=== PATIENT | female | born 1950 | race Caucasian/White ===

== ENCOUNTER → 2016-09-28 | Outpatient (CLI) | payer BC ==
[~2016-09-28] MED LIST: ALBUAER19 INH; AMITIZA PO; ASPI81TA21 PO; ATV5 PO; CHOL100027 PO; CYAN10004 PO; DICY20TA35 PO; DPH/ PO; GABA300C19 PO; KETOPROFEN TOP; LAMO200T38 PO; LOSA50TA6 PO; LRT5 PO; METF1000 PO; MRLP17 PO; MULTTAB58 PO; NAPR1TAB9 PO; PANT40TA PO; RAME8TAB PO; SIMV20TA2 PO; SNT/10 PO; TRAM-10 PO; TRAZ100T29 PO; VAGIFEM PO
== END | disposition home or self-care (01) ==
LOC: C.LABBC 13:47
PROVIDERS: ATTEND Psychiatry & Neurology Psychiatry
DX: F31.4 Bipolar disorder, current episode depressed, severe, without psychotic features (principal)

== ENCOUNTER → 2016-11-09 | Outpatient (CLI) | payer BC | END | disposition home or self-care (01) | LOC: C.PAPS 15:52 | PROVIDERS: ATTEND Obstetrics & Gynecology | DX: Z01.419 Encounter for gynecological examination (general) (routine) without abnormal findings (principal); N95.2 Postmenopausal atrophic vaginitis ==

== ENCOUNTER → 2016-12-10 | Outpatient (CLI) | payer BC ==
[2016-12-10 11:21] LABS: BLOOD UREA NITROGEN 12 mg/dl (7-18); BUN/CREATININE RATIO 14.4 (10-20); CALCIUM 8.8 mg/dl (8.5-10.1); CARBON DIOXIDE 32 mmol/L (21-32); CHLORIDE 101 mmol/L (98-107); CREATININE 0.86 mg/dl (0.60-1.20); GLUCOSE 131 mg/dl (70-99); MAGNESIUM 1.5 mg/dl (1.8-2.4); POTASSIUM 3.9 mmol/L (3.5-5.1); SODIUM 139 mmol/L (136-145)
[2016-12-10 11:30] LABS: ESTIMATED AVERAGE GLUCOSE 171 mg/dl; HA1C FLAG Normal (Normal)
== END | disposition home or self-care (01) ==
LOC: C.LABBC 08:42
PROVIDERS: ATTEND Internal Medicine
DX: E55.9 Vitamin D deficiency, unspecified (principal); E11.9 Type 2 diabetes mellitus without complications; E83.42 Hypomagnesemia

== ENCOUNTER → 2017-03-24 | Outpatient (CLI) | payer BC ==
[2017-03-24 13:41] LABS: ESTIMATED AVERAGE GLUCOSE 143 mg/dl; HA1C FLAG Normal (Normal)
[2017-03-24 14:07] LABS: ALT/SGPT 19 U/L (12-78); AST/SGOT 10 U/L (15-37); BLOOD UREA NITROGEN 16 mg/dl (7-18); BUN/CREATININE RATIO 14.4 (10-20); CALCIUM 9.3 mg/dl (8.5-10.1); CARBON DIOXIDE 26 mmol/L (21-32); CHLORIDE 103 mmol/L (98-107); CHOLESTEROL 151 mg/dl (0-200); GLUCOSE 131 mg/dl (70-99); SODIUM 139 mmol/L (136-145); TRIGLYCERIDES 151 mg/dl (0-150); VERY LOW DENSITY LIPOPROT CALC 30 mg/dl
[2017-03-24 14:11] LABS: CHOLESTEROL/HDL RATIO 3.2; HDL CHOLESTEROL 47 mg/dl; LDL CHOLESTEROL CALCULATED 74 mg/dl
== END | disposition home or self-care (01) ==
LOC: C.LABBC 09:41
PROVIDERS: ATTEND Internal Medicine
DX: E78.5 Hyperlipidemia, unspecified (principal); I10 Essential (primary) hypertension; E11.9 Type 2 diabetes mellitus without complications

== ENCOUNTER → 2017-03-31 | Outpatient (CLI) | payer BC | END | disposition home or self-care (01) | LOC: C.LAB1850 15:13 | PROVIDERS: ATTEND Internal Medicine | DX: M25.50 Pain in unspecified joint (principal) ==

== ENCOUNTER → 2017-04-22 | Outpatient (CLI) | payer BC ==
[2017-04-22 19:02] LABS: LYME DISEASE AB IGG NEG (NEG); LYME DISEASE AB IGM NEG (NEG)
[2017-04-22 20:15] LABS: RAPID PLASMA REAGIN NONREACTIVE (NONREACT)
--- NOTE | 2017-04-27 08:57 | CODING QUERY MEDICAL NECESSITY ---
SUPPORTING DIAGNOSIS NEEDED A supporting diagnosis is required for the test/procedure performed on this patient in order for us to be reimbursed by the patient's insurance. Please provide a supporting diagnosis for the following test/procedure listed below next to the test name along with your signature. *If there is no additional diagnosis for this patient that would support the following test/procedure please document that below next to the test/procedure. Test(s)/Procedure(s) that require a supporting diagnosis: * VITAMIN B12 DIAGNOSIS: Provider Signature: Date: Thank you Sofya [place] [employer] Once completed, please kindly fax back to [phone] For questions please call [phone]
== END | disposition home or self-care (01) ==
LOC: C.LABBC 13:39
PROVIDERS: ATTEND Psychiatry & Neurology Neurology
DX: M79.603 Pain in arm, unspecified (principal); R20.8 Other disturbances of skin sensation

== ENCOUNTER → 2017-04-29 | Outpatient (CLI) | payer BC ==
--- NOTE | 2017-04-29 08:07 | DIAGNOSTIC IMAGING REPORT ---
Brain MRI WITHOUT CONTRAST HISTORY: M79.603 right Arm pain r/o thalamic stroke TECHNIQUE: Multiplanar multisequence MRI of the brain was performed without the use of contrast. COMPARISON STUDY: None. FINDINGS: There are no areas of restricted diffusion to suggest acute infarction. Incidental note is made of a partially empty sella. Otherwise, the midline structures are intact. The paranasal sinuses are clear. The mastoid air cells are clear. The ventricles and sulci are within normal limits for age. There is no mass, hematoma, midline shift. The major vascular flow-voids at the skull base are well maintained. There are few scattered punctate T2 hyperintense foci within the periventricular white matter. These are nonspecific but favor minimal microvascular ischemic change. IMPRESSION: No acute intracranial abnormality. Electronically signed by: Sung Rojas M.D. 04/29/2017 8:06 AM Dictated Date/Time: 04/29/2017 8:01 AM
--- NOTE | 2017-04-29 08:30 | DIAGNOSTIC IMAGING REPORT ---
CERVICAL WITHOUT CONTRAST HISTORY: 66 years-old Female M79.603 acute right arm pain without trauma COMPARISON: Brain MR of same day. TECHNIQUE: Multiplanar multisequence noncontrast MR images of the cervical spine were obtained. FINDINGS: The imaged posterior fossa structures are unremarkable. Signal within the cord is within normal limits on the T2 images. Increased signal within the cord extending from C3-T1 on the sagittal STIR images is thought to be artifactual. Multilevel intervertebral disc space narrowing, annular disc bulging and facet arthropathy is noted as discussed below. There is reversal of the normal cervical lordosis with approximately 10 degrees kyphotic curvature centered at C5-C6. The imaged soft tissues of the neck appear to be within normal limits. No fracture or focal bone marrow edema. No marrow replacing process. C2-C3: Minimal uncovertebral spurring without significant central canal or foraminal narrowing. C3-C4: 2 mm anterolisthesis of C3 on C4 is likely on a degenerative basis. There is mild to moderate intervertebral disc space narrowing with uncovertebral spurring and mild facet arthropathy causing effacement the ventral thecal sac. Neuroforamen are patent. C4-C5: Mild to moderate intervertebral disc space narrowing and uncovertebral spurring is noted with mild facet arthropathy. Broad-based posterior disc ossify complex formation causes mild central canal narrowing. The neuroforamen are patent. C5-C6: Moderate to severe intervertebral disc space narrowing is present with associated broad-based posterior disc osteophyte complex favoring the right paracentral region and right lateral recess causing mild central canal, moderate right lateral recess and severe right neuroforaminal narrowing. Additionally there is moderate facet arthropathy. Left foramen is patent. C6-C7: Severe intervertebral disc space narrowing with mild to moderate facet arthrosis. Broad-based posterior disc osteophyte complex formation causes moderate central canal, moderate right and moderate to severe left foraminal stenosis. C7-T1: Moderate intervertebral disc space narrowing with moderate facet arthrosis and broad-based posterior disc osteophyte complex causes mild central canal narrowing. The foramina are generally patent. Imaged upper thoracic levels appear normal on the sagittal images alone. IMPRESSION: 1. 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 This may account for the patient's reported right upper extremity symptomatology. 2. At C6-C7 discogenic degeneration causes moderate central canal, moderate right and moderate to severe left foraminal narrowing. 3. At C7-T1 moderate facet arthrosis with broad-based posterior disc osteophyte complex formation causes mild central canal stenosis. 4. 10 degrees kyphotic curvature centered at C5-C6. The above report was generated using voice recognition software. It may contain grammatical, syntax or spelling errors. Electronically signed by: Mitch Serrano M.D. 04/29/2017 8:29 AM Dictated Date/Time: 04/29/2017 8:11 AM
== END | disposition home or self-care (01) ==
LOC: C.MRIBC 07:10
PROVIDERS: ATTEND Psychiatry & Neurology Neurology
DX: M79.601 Pain in right arm (principal); M50.322 Other cervical disc degeneration at C5-C6 level; M50.323 Other cervical disc degeneration at C6-C7 level; M50.33 Other cervical disc degeneration, cervicothoracic region

== ENCOUNTER → 2017-09-09 | Outpatient (CLI) | payer BC ==
[~2017-09-09] MED LIST changes: -AMITIZA PO; -DICY20TA35 PO; -DPH/ PO; -GABA300C19 PO; +GABA400C PO; -KETOPROFEN TOP; +LAMO200T35 PO; -LAMO200T38 PO; -LRT5 PO; +METH500T37 PO; -MRLP17 PO; -NAPR1TAB9 PO; -PANT40TA PO; -VAGIFEM PO
[2017-09-09 11:13] LABS: BLOOD UREA NITROGEN 21 mg/dl (7-18); BUN/CREATININE RATIO 20.3 (10-20); CALCIUM 9.6 mg/dl (8.5-10.1); CARBON DIOXIDE 26 mmol/L (21-32); CHLORIDE 99 mmol/L (98-107); CREATININE 1.02 mg/dl (0.60-1.20); GLUCOSE 212 mg/dl (70-99); POTASSIUM 4.1 mmol/L (3.5-5.1); SODIUM 133 mmol/L (136-145)
[2017-09-09 11:23] LABS: ESTIMATED AVERAGE GLUCOSE 189 mg/dl; HA1C FLAG Normal (Normal)
== END | disposition home or self-care (01) ==
LOC: C.LABBC 09:02
PROVIDERS: ATTEND Internal Medicine
DX: E11.9 Type 2 diabetes mellitus without complications (principal); E53.8 Deficiency of other specified B group vitamins; E55.9 Vitamin D deficiency, unspecified

== ENCOUNTER → 2017-09-28 | Outpatient (CLI) | payer BC ==
--- NOTE | 2017-09-29 15:30 | MAMMOGRAPHY REPORT ---
BILATERAL DIGITAL SCREENING MAMMOGRAM TOMOSYNTHESIS WITH CAD: 09/28/2017 CLINICAL HISTORY: Routine screening. Patient has no complaints. TECHNIQUE: Breast tomosynthesis in addition to standard 2D mammography was performed. Current study was also evaluated with a Computer Aided Detection (CAD) system. COMPARISON: Comparison is made to exams dated: 05/18/2016 mammogram, 04/09/2015 mammogram, 01/30/2014 m ammogram, 01/17/2013 mammogram, 12/21/2011 mammogram, and 12/02/2010 mammogram - [facility] nter. BREAST COMPOSITION: There are scattered areas of fibroglandular density in both breasts. FINDINGS: A focal asymmetry in the upper outer left breast posteriorly is unchanged in size and appea saul dating back to at least 11/23/2007, therefore likely benign. There are numerous scattered jodi gn coarse calcifications in the breasts. Moderate vascular calcification. No new suspicious mass, a rchitectural distortion or cluster of microcalcifications is seen. IMPRESSION: ACR BI-RADS CATEGORY 1: NEGATIVE There is no mammographic evidence of malignancy. A 1 year screening mammogram is recommended. The pa tient will receive written notification of the results. Approximately 10% of breast cancers are not detected with mammography. A negative mammographic report should not delay biopsy if a clinically suggestive mass is present. Darlene Herndon M.D. ay/:09/28/2017 16:32:49 [employer]ile Processing Technologist: Alicia Alejandra RT(R)(M), [facility] letter sent: Normal 1/2 BI-RADS Code: ACR BI-RADS Category 1: Negative
== END | disposition home or self-care (01) ==
LOC: C.MAMM 11:28
PROVIDERS: ATTEND Obstetrics & Gynecology
DX: Z12.31 Encounter for screening mammogram for malignant neoplasm of breast (principal)

== ENCOUNTER → 2017-11-04 | Outpatient (CLI) | payer BC ==
[~2017-11-04] MED LIST changes: +LOSA1TAB PO; -LOSA50TA6 PO
--- NOTE | 2017-11-04 15:01 | DIAGNOSTIC IMAGING REPORT ---
R ELBOW MIN 3 VIEWS ROUTINE CLINICAL HISTORY: RIGHT ELBOW PAIN pain COMPARISON: None. DISCUSSION: The bones and joint spaces appear intact. There is no evidence of fracture, dislocation or bony disease. There is no evidence for soft tissue swelling. IMPRESSION: Negative study. The above report was generated using voice recognition software. It may contain grammatical, syntax or spelling errors. Electronically signed by: Elian Fernando M.D. 11/04/2017 3:00 PM Dictated Date/Time: 11/04/2017 2:59 PM
== END | disposition home or self-care (01) ==
LOC: C.RAD1850 14:49
PROVIDERS: ATTEND Physical Medicine & Rehabilitation Sports Medicine
DX: M25.511 Pain in right shoulder (principal); M25.521 Pain in right elbow

== ENCOUNTER → 2017-11-17 | Outpatient (CLI) | payer BC | END | disposition home or self-care (01) | LOC: C.PAPS 13:47 | PROVIDERS: ATTEND Obstetrics & Gynecology | DX: N95.2 Postmenopausal atrophic vaginitis (principal); L90.0 Lichen sclerosus et atrophicus ==

== ENCOUNTER → 2017-11-26 | Outpatient (CLI) | payer BC ==
--- NOTE | 2017-11-26 14:15 | DIAGNOSTIC IMAGING REPORT ---
CERVICAL SPINE 2 OR 3 VIEWS HISTORY: 67 years-old Female RIGHT ARM AND NECK PAIN acute neck and right arm pain COMPARISON: Cervical spine MRI 04/29/2017 TECHNIQUE: 2 views of the cervical spine FINDINGS: Sternotomy wires are partially imaged as well as surgical clips along the left mediastinum. Imaged lung mcdaniel appear clear. No prevertebral soft tissue swelling. The seventh vertebral segment is partially secured by patient's shoulder on the lateral view. Severe intervertebral disc space narrowing is present at C5-C6, and C6-C7 with at least moderate intervertebral disc space narrowing at C7-T1. Multilevel endplate spurring with at least moderate multilevel facet arthropathy. There is straightening of the normal cervical lordosis. No acute fracture or subluxation identified. IMPRESSION: 1. No acute fracture or subluxation identified. 2. Multilevel intervertebral disc space narrowing, endplate spurring and facet arthropathy as above. The above report was generated using voice recognition software. It may contain grammatical, syntax or spelling errors. Electronically signed by: Mitch Serrano M.D. 11/26/2017 2:13 PM Dictated Date/Time: 11/26/2017 2:10 PM
== END | disposition home or self-care (01) ==
LOC: C.RDSM 08:00
PROVIDERS: ATTEND Orthopaedic Surgery
DX: M79.601 Pain in right arm (principal); M99.71 Connective tissue and disc stenosis of intervertebral foramina of cervical region; M46.02 Spinal enthesopathy, cervical region

== ENCOUNTER → 2018-01-07 | Outpatient (CLI) | payer BC ==
[~2018-01-07] MED LIST changes: +ASPI-319 PO; -ASPI81TA21 PO; -GABA400C PO; +NRN800 PO
[2018-01-07 10:43] LABS: BLOOD UREA NITROGEN 11 mg/dl (7-18); CALCIUM 9.6 mg/dl (8.5-10.1); CARBON DIOXIDE 29 mmol/L (21-32); CREATININE 0.91 mg/dl (0.60-1.20); GLUCOSE 105 mg/dl (70-99); POTASSIUM 3.8 mmol/L (3.5-5.1); SODIUM 139 mmol/L (136-145)
[2018-01-07 10:46] LABS: ALT/SGPT 18 U/L (12-78); AST/SGOT 10 U/L (15-37); CHOLESTEROL 134 mg/dl (0-200); LDL CHOLESTEROL CALCULATED 36 mg/dl
[2018-01-07 10:53] LABS: CREATININE RANDOM URINE 46.9 mg/dl
[2018-01-07 11:14] LABS: HEMOGLOBIN A1C 6.2 % (4.5-5.6)
== END | disposition home or self-care (01) ==
LOC: C.LABBC 08:06
PROVIDERS: ATTEND Internal Medicine
DX: E11.9 Type 2 diabetes mellitus without complications (principal); I10 Essential (primary) hypertension; E78.5 Hyperlipidemia, unspecified

== ENCOUNTER → 2018-04-14 | Outpatient (CLI) | payer BC ==
[~2018-04-14] MED LIST changes: +METH-445 PO; -METH500T37 PO
--- NOTE | 2018-04-14 16:55 | DIAGNOSTIC IMAGING REPORT ---
CERVICAL SPINE MRI HISTORY: Right-sided upper extremity pain. TECHNIQUE: Multiplanar multisequence MRI of the cervical spine was performed without the use of contrast. COMPARISON STUDY: Cervical spine 11/26/2017. Cervical spine MRI 04/29/2017. FINDINGS: Slight reversal the normal lordotic curvature. No fracture or subluxation. Prevertebral soft tissues and the C1-C2 interval are intact. The visualized posterior fossa is unremarkable. The cervical spinal cord demonstrates a normal signal intensity. Mild facet degenerative changes throughout the cervical spine. This remains unchanged. Severe disc space narrowing with small endplate osteophytes at C5-C6 and C6-7, unchanged. Moderate disc space narrowing at C7-T1 which is also unchanged. Mild disc space narrowing at C3-C4 and C4-C5. C2-C3: No significant central canal or neural foraminal narrowing. C3-C4: Small broad-based posterior disc bulge resulting in partial effacement of the anterior thecal sac without cord deformity. Mild left-sided neural foraminal narrowing. C4-C5: Broad-based posterior disc bulge which abuts and slightly deforms the anterior cord. There is also mild left-sided neural foraminal narrowing due to the uncovertebral hypertrophy. C5-C6: Broad-based posterior disc bulge which abuts and slightly deforms the anterior cord. There is severe right-sided neural foraminal narrowing primarily due to the uncovertebral hypertrophy. C6-C7: Broad-based posterior disc bulge with a focal central disc protrusion. This abuts and slightly deforms anterior cord. There is severe bilateral neural foraminal narrowing due to the disc bulge and uncovertebral hypertrophy. C7-T1: Broad-based posterior disc bulge resulting in near-complete effacement of the anterior thecal sac without cord deformity. Moderate right and mild left neural foraminal narrowing. IMPRESSION: 1. Overall, no significant change compared to prior study. 2. Multilevel cervical spondylosis as described above most pronounced at the C6-C7 level. 3. No fracture or subluxation. 4. Mild reversal the normal lordotic curvature, unchanged Electronically signed by: Sung Rojas M.D. 04/14/2018 4:53 PM Dictated Date/Time: 04/14/2018 4:44 PM
== END | disposition home or self-care (01) ==
LOC: C.MRIBC 15:32
PROVIDERS: ATTEND Nurse Practitioner
DX: M47.812 Spondylosis without myelopathy or radiculopathy, cervical region (principal); M54.12 Radiculopathy, cervical region

== ENCOUNTER 2023-03-05 15:45 | Inpatient (IN) ==
[2023-03-05 17:00] LABS: Basophils # (auto) 0.05 K/uL (0-0.2); Basophils % (auto) 0.7 %; Eosinophils # (auto) 0.12 K/uL (0-0.50); Eosinophils % (auto) 1.7 %; Hematocrit (blood only) 34.1 % (37.0-47.0); Hemoglobin 11.4 g/dl (12.0-16.0); Immature Granulocytes # (auto) 0.03 K/uL (0.01-0.20); Immature Granulocytes % (auto) 0.4 %; Lymphocytes # (auto) 1.51 K/uL (1.2-3.4); Lymphocytes % (auto) 21.9 %; Mean Corpuscular Hemoglobin 27.5 pg (25.0-34.0); Mean Corpuscular Hgb Conc 33.4 g/dL (32.0-36.0); Mean Corpuscular Volume 82.4 fL (80.0-100.0); Mean Platelet Volume 9.4 fL (9.4-12.4); Monocytes # (auto) 0.49 K/uL (0.11-0.59); Monocytes % (auto) 7.1 %; Neutrophils # (auto) 4.69 K/uL (1.40-6.50); Neutrophils % (auto) 68.2 %; Platelet Count 382 K/uL (130-400); RDW Standard Deviation 38.9 fL (36.4-46.3); Red Blood Count 4.14 M/uL (4.20-5.40); White Blood Count 6.89 K/ul (4.8-10.8)
[2023-03-05 17:14] LABS: Albumin Globulin Ratio 1.5 (0.9-2); Albumin Level 4.4 gm/dl (3.4-5.0); BUN Creatinine Ratio 19.3 (10-20); Bilirubin,Total 0.5 mg/dl (0.2-1.0); Calcium 9.7 mg/dl (8.6-10.3); Creatinine Clr Calc Pharmacy 33.5 ml/min; Est GFR (African American) 41.3 ml/min; Est GFR (Non-African American) 35.6 ml/min; Potassium 3.8 mmol/L (3.5-5.1); Total Protein 7.4 gm/dl (6.0-8.3)
[2023-03-05 17:19] LABS: Troponin I High Sensitivity 7.2 pg/ml (0-14)
[2023-03-05 17:24] LABS: Partial Thromboplastin Time 26.8 Seconds (21.0-31.0); Prothrombin Time 10.5 Seconds (9.0-12.0)
--- NOTE | 2023-03-05 17:26 | XRay Report ---
XR chest 1V not portable CLINICAL HISTORY: Chest pain, nonspecific COMPARISON STUDY: Chest radiograph December 25, 2018. FINDINGS: There are median sternotomy wires and mediastinal surgical clips. Cardiomediastinal silhoue tte is stable. There is no evidence for pulmonary edema. No consolidation is present. There is no pne umothorax or pleural effusion. IMPRESSION: No acute cardiopulmonary findings. ACT 112: Negative or not required by law. Electronically signed by: Delfino Ford M.D. 03/05/2023 5:25 PM
--- NOTE | 2023-03-05 18:02 | Emergency Department Note ---
Impression & Plan Diverticulitis, Acute hyponatremia, Generalized weakness ED Provider Note HISTORY OF PRESENT ILLNESS: Patient is a 72-year-old female presenting with left lower quadrant abdominal p ain and generalized weakness. Patient reports for the last week she has been sick with general malaise and generalized weakness. Reports that she had multiple episodes of vomiting earlier in the week and went to her primary care provider's office and was diagnosed with acute cholecystitis. She was started on Augmentin 2 days ago. Reports that over the last 2 days she has had progressively worsening of her left lower quadrant abdominal pain. Reports has had multiple episodes of diarrhea. Denies any chest pain or shortness of breath. Denies any fevers. Denies any dysuria or hematuria. Reports she feels very rundown and has not been able to do her normal activities secondary to her profound fatigue. ROS: as above PHYSICAL EXAM: Constitutional: Patient appears in no acute distress. HENT: Head: Normocephalic and atraumatic. Eyes: EOMI, PERRL Mouth/Throat: Mucous membranes moist. Neck: Trachea midline. Neck supple. Cardiovascular: RRR, No murmurs, rubs or gallops. Intact distal pulses. Pulmonary/Chest: No respiratory distress. Breath sounds clear and equal bilaterally. No wheezes or rales. Abdominal: BS +. Abdomen soft. LLQ TTP with guarding Musculoskeletal: No edema, tenderness or deformity noted. Skin: Warm and dry. No rash, erythema, pallor or cyanosis Psychiatric: Appropriate mood and affect for situation. Neurological: Alert and keenly responsive. CN II-XII grossly intact, moving all extremities equally and fully. MDM: - Vitals signs showed hypertension. - History obtained via patient. Patient presents with left lower quadrant abdominal pain and generalized weakness. Patient was diagnosed with acute cholecystitis 2 days ago and started on Augmentin. Reports for the last week she been having progressively worsening generalized weakness. Reports she has been unable to do her daily activities secondary to feeling so rundown. Denies any fevers. Reports vomiting and diarrhea. - Chronic conditions affecting care: HTN; HLD; DM-2; CAD (s/p PCI) - Differential diagnoses include, but are not limited to: diverticulitis; diverticular abscess; ureteral calculi; UTI - Order placed for continuous cardiac monitoring. At this time, monitor showed rate of 85 bpm with normal sinus rhythm, per my interpretation. - External medical records reviewed. PCP visit note from 03/03/[address] scan was shown to have acute diverticulitis. She was started on Augmentin. - EKG interpreted by myself showed normal sinus rhythm. Rate 91 bpm. QTc 405. No acute ischemic changes. - Laboratory workup interpreted by myself showed normal WBC; hyponatremia (Na 128); CKD (Cr 1.45); normal liver function; normal troponin; negative procalcitonin - CT abdomen/pelvis wiht IV contrast obtained to rule out abscess. CT showed persistent mild sigmoid diverticulitis. - Considered CT head wo contrast for further rule out of patient's weakness. However, she has no focal neurological deficits on examination. Her generalized weakness may be multifactorial given her acute infectious etiology as well as her hyponatremia. - CXR negative for pneumonia or pneumothorax, per my interpretation - Patient given 1L NS, 50 mcg IV fentanyl and 4 mg IV zofran in ER. On reassessment, pain is improved. - Discussed results with patient. She expresses concern about potential discharge home, given her generalized weakness and the fact that she lives alone. Offered admission to the hospital to which she was agreeable - Discussion was had with secondary social studies teacher about patient's case and need for admission - Hospitalist, Dr. Day, consulted for admission - [facility] and [facility] ASSESSMENT AND PLAN: Diagnosis: generalized weakness; diverticulitis; hyponatremia Plan: admit Past Med/Surg History Medical History (Updated 03/05/23 @ 21:17 by Ángela Mcpherson MD) Abdominal pain Abdominal pain, LLQ Anxiety Asthma RARE INH USE Bipolar disorder CAD S/P percutaneous coronary angioplasty Cervical radiculopathy Depression Diabetes Fall History of Holter monitoring YRS AGO HTN (hypertension) Hyperlipemia IBS (irritable bowel syndrome) Insomnia Lichen sclerosus et atrophicus Mixed conductive and sensorineural hearing loss of right ear with restricted hearing of left ear Pain of right orbit Photophobia of right eye Premature ventricular contractions FOLLOWS ZYSMANSKY Reflex sympathetic dystrophy Renal insufficiency Renal stones CYSTO AND SOME PASSED ON OWN Sensorineural hearing loss (SNHL) of right ear with restricted hearing of left ear Tinnitus of right ear Traumatic black eye of right side UTI (urinary tract infection) Vitamin B12 deficiency Vitamin D deficiency Surgical History H/O decompression of ulnar nerve RIGHT 2018 H/O ovarian cystectomy H/O repair of rotator cuff LEFT WITH PARTIAL COLLAR BONE REMOVAL H/O: section X2 History of ankle surgery RIGHT> NO HARDWARE History of appendectomy History of cardiac cath X2> NO STENTS LAST 1996 History of carpal tunnel repair BILAT History of cataract removal with insertion of prosthetic lens BILAT History of colonoscopy History of cystoscopy History of laminectomy L4-6 History of neck surgery LAPAROTOMY C5-7> ROM IS GOOD History of ovarian cystectomy History of tonsillectomy History of tooth extraction X3 Hx of CABG AUG 1997 > 2 VESSEL> TORY Family History Father Nephrolithiasis Renal cyst Kidney disease Hypertension History of nephrectomy Prostate cancer Cataract Arthritis Gout ESRD (end stage renal disease) Grandmother Hypertension Stroke syndrome Grandfather Hypertension Prostate cancer Mother Type 2 diabetes mellitus Pancreatitis Hypertension Macular degeneration Cataract Malignant melanoma of skin Vascular dementia Transient ischemic attack Grandfather Lung cancer Grandmother Type 2 diabetes mellitus Obesity Brother Prostate cancer Hypertension Type 2 diabetes mellitus Nephrolithiasis Rosacea Chronic sinusitis Hyperlipidemia Arthritis Liver cancer Unknown Dysplastic nevus Sister Hyperlipidemia Daughter Gestational diabetes Son Asthma Other No family history of adverse response to anesthesia No family history of bleeding disorder Denies family history of Colon cancer Ovarian cancer Myocardial infarction Breast cancer Social History Smoking Status: Never smoker Second Hand Exposure: No; Do You Dip or Chew Tobacco: No; Hx Alcohol Use: No Hx Substance Use: No Preferred Language: Slovenian Communication Ability: Effective Visual Impairment: No Limitations Hearing Ability: Normal Freight Broker Required: No Beliefs That Will Affect Care: None marital status: Single Current Living Situation: Alone current occupational status: retired current occupation: campus administrative assistant at [employer] Feels Safe at Home: Yes Childhood Exposure to Second-Hand Smoke: No Diet: regular Dental Care, Regularly: Yes Physical Activity Frequency: Does not Exercise Seatbelt Use: always Sunscreen Use: Yes (sometime for sunscreen but always where a sunhat) Assistive Devices: Glasses Allergies Allergies Allergy/AdvReac Type Severity Reaction Status Date / Time lurasidone Allergy Intermediate TARDIVE Verified 03/03/23 12:33 DYSKINESIA Phenothiazines Allergy Intermediate "EYES ROLL Verified 03/03/23 12:33 UP" lactose Allergy Mild Verified 03/03/23 12:33 bupropion AdvReac Unknown SEIZURE IN Verified 03/03/23 12:33 PAST lithium AdvReac Unknown VOMITING Verified 03/03/23 12:33 AND DIARRHEA ARTIFICIAL SWEETNERS Allergy Unknown DIARRHEA Uncoded 03/03/23 12:33 Home Meds Home Medications Medication Instructions Recorded Confirmed aspirin 81 mg tablet,delayed 81 mg PO QAM 12/25/18 03/05/23 release (Celestino Low Dose Aspirin) cyanocobalamin (vitamin B-12) 1,000 mcg IM MONTHLY 03/13/19 03/05/23 1,000 mcg/mL injection solution lamotrigine 100 mg tablet 200 mg PO QAM 03/13/19 03/05/23 trazodone 100 mg tablet 100 mg PO DAILY 03/21/21 03/05/23 dicyclomine 10 mg capsule 10 mg PO TID PRN Abdominal 03/05/23 03/05/23 Discomfort Previous Rx's Medication Instructions Recorded tramadol 50 mg tablet 50 mg PO DAILY PRN pain #10 tabs 04/08/21 valsartan 80 mg tablet 80 mg PO PM #90 tabs 04/08/22 gabapentin 100 mg capsule 100 mg PO BID #180 caps 07/29/22 gabapentin 600 mg tablet 600 mg PO BID #180 tabs 07/29/22 ondansetron HCl 4 mg tablet 4 mg PO DAILY PRN nausea and 08/06/22 vomiting #30 tabs metformin 500 mg tablet,extended 1,000 mg PO BID #360 tabs 11/26/22 release 24 hr levalbuterol tartrate 45 2 inh inhalation Q6H PRN Shortness 12/15/22 mcg/actuation aerosol inhaler Of Breath #15 grams (Xopenex HFA) atorvastatin 40 mg tablet 40 mg PO HS #90 tabs 02/05/23 amoxicillin 500 mg-potassium 1 tab PO BID #20 tabs 03/03/23 clavulanate 125 mg tablet (Augmentin) blood sugar diagnostic (OneTouch #100 ea 03/03/23 Verio test strips) lancets #100 ea 03/03/23 Results & Data (ED) Vital Signs Vital Signs - 24 hr 03/05/23 15:49 03/05/23 18:11 03/05/23 18:23 Temperature 36.6 C Temperature Source Oral Pulse Rate 94 H 87 Pulse Rate [Apical] 85 Pulse Rhythm [Apical] Regular Pulse Strength [Apical] Normal Respiratory Rate 16 18 Respiratory Effort / Characteristics Non-Labored Non-Labored Spontaneous Respiratory Depth Normal Normal Respiratory Pattern Regular Blood Pressure 193/90 H Blood Pressure [Right Arm] 203/116 H Blood Pressure Mean 124 Blood Pressure Mean [Right Arm] 145 Blood Pressure Position [Right Arm] Lying Pulse Oximetry 99 96 Oxygen Delivery Method Room Air Room Air Sepsis Recent Fever Within 48 Hours No Sepsis New/Unexplained Change in Mental Status No Sepsis Action Taken by Nursing No Action Required 03/05/23 20:00 Temperature Temperature Source Pulse Rate Pulse Rate [Apical] 93 H Pulse Rhythm [Apical] Pulse Strength [Apical] Respiratory Rate 16 Respiratory Effort / Characteristics Respiratory Depth Respiratory Pattern Blood Pressure Blood Pressure [Right Arm] 152/83 H Blood Pressure Mean Blood Pressure Mean [Right Arm] 106 Blood Pressure Position [Right Arm] Pulse Oximetry 95 Oxygen Delivery Method Room Air Sepsis Recent Fever Within 48 Hours Sepsis New/Unexplained Change in Mental Status Sepsis Action Taken by Nursing Laboratory Data 03/05/23 16:45 03/05/23 16:45 Lab Results 03/05/23 03/05/23 03/05/23 Range/Units 16:45 16:45 16:45 WBC 6.89 (4.8-10.8) K/ul RBC 4.14 L (4.20-5.40) M/uL Hgb 11.4 L (12.0-16.0) g/dl Hct 34.1 L (37.0-47.0) % MCV 82.4 (80.0-100.0) fL MCH 27.5 (25.0-34.0) pg MCHC 33.4 (32.0-36.0) g/dL RDW Std Deviation 38.9 (36.4-46.3) fL RDW Coeff of Maribel 13.0 (11.5-14.5) % Plt Count 382 (130-400) K/uL MPV 9.4 (9.4-12.4) fL Immature Gran % (Auto) 0.4 % Neut % (Auto) 68.2 % Lymph % (Auto) 21.9 % [place] % (Auto) 7.1 % Eos % (Auto) 1.7 % Baso % (Auto) 0.7 % Neut # (Auto) 4.69 (1.40-6.50) K/uL Lymph # (Auto) 1.51 (1.2-3.4) K/uL [place] # (Auto) 0.49 (0.11-0.59) K/uL Eos # (Auto) 0.12 (0-0.50) K/uL Baso # (Auto) 0.05 (0-0.2) K/uL Immature Gran # (Auto) 0.03 (0.01-0.20) K/uL PT 10.5 (9.0-12.0) Seconds INR 1.0 (0.9-1.1) APTT 26.8 (21.0-31.0) Seconds PTT Ratio 1.0 Sodium 128 L (136-145) mmol/L Potassium 3.8 (3.5-5.1) mmol/L Chloride 92 L (98-107) mmol/L Carbon Dioxide 23 (21-32) mmol/L Anion Gap 13 H (3-11) BUN 28 H (6-23) mg/dl Creatinine 1.45 H (0.6-1.2) mg/dl Est Cr Clr Drug Dosing 33.5 ml/min Est GFR ( Amer) 41.3 ml/min Est GFR (Non-Af Amer) 35.6 ml/min BUN/Creatinine Ratio 19.3 (10-20) Glucose 135 H (70-99(Fasting)) mg/dl POC Glucose (70-99) mg/dl Calcium 9.7 (8.6-10.3) mg/dl Total Bilirubin 0.5 (0.2-1.0) mg/dl AST 18 (13-39) U/L ALT 17 (7-52) U/L Alkaline Phosphatase 93 (34-104) U/L Troponin I High Sens 7.2 (0-14) pg/ml Total Protein 7.4 (6.0-8.3) gm/dl Albumin 4.4 (3.4-5.0) gm/dl Globulin 3.0 (2.5-4.0) gm/dl Albumin/Globulin Ratio 1.5 (0.9-2) Procalcitonin (0-0.5) ng/ml 03/05/23 03/05/23 Range/Units 16:45 17:48 WBC (4.8-10.8) K/ul RBC (4.20-5.40) M/uL Hgb (12.0-16.0) g/dl Hct (37.0-47.0) % MCV (80.0-100.0) fL MCH (25.0-34.0) pg MCHC (32.0-36.0) g/dL RDW Std Deviation (36.4-46.3) fL RDW Coeff of Maribel (11.5-14.5) % Plt Count (130-400) K/uL MPV (9.4-12.4) fL Immature Gran % (Auto) % Neut % (Auto) % Lymph % (Auto) % [place] % (Auto) % Eos % (Auto) % Baso % (Auto) % Neut # (Auto) (1.40-6.50) K/uL Lymph # (Auto) (1.2-3.4) K/uL [place] # (Auto) (0.11-0.59) K/uL Eos # (Auto) (0-0.50) K/uL Baso # (Auto) (0-0.2) K/uL Immature Gran # (Auto) (0.01-0.20) K/uL PT (9.0-12.0) Seconds INR (0.9-1.1) APTT (21.0-31.0) Seconds PTT Ratio Sodium (136-145) mmol/L Potassium (3.5-5.1) mmol/L Chloride (98-107) mmol/L Carbon Dioxide (21-32) mmol/L Anion Gap (3-11) BUN (6-23) mg/dl Creatinine (0.6-1.2) mg/dl Est Cr Clr Drug Dosing ml/min Est GFR ( Amer) ml/min Est GFR (Non-Af Amer) ml/min BUN/Creatinine Ratio (10-20) Glucose (70-99(Fasting)) mg/dl POC Glucose 129 H (70-99) mg/dl Calcium (8.6-10.3) mg/dl Total Bilirubin (0.2-1.0) mg/dl AST (13-39) U/L ALT (7-52) U/L Alkaline Phosphatase (34-104) U/L Troponin I High Sens (0-14) pg/ml Total Protein (6.0-8.3) gm/dl Albumin (3.4-5.0) gm/dl Globulin (2.5-4.0) gm/dl Albumin/Globulin Ratio (0.9-2) Procalcitonin 0.09 (0-0.5) ng/ml Administered Medications Discontinued Medications Fentanyl Citrate (Fentanyl Citrate Pf 100 Mcg/2 Ml Vial) 50 mcg IV NOW STA Stop: 03/05/23 18:14 Last Admin: 03/05/23 18:35 Dose: 50 mcg Documented By: RAMONITA Sodium Chloride (Nss 1000ml) 1,000 mls @ 999 mls/hr IV .Q1H1M ONE Stop: 03/05/23 19:13 Last Infusion: 03/05/23 19:50 Dose: 0 mls/hr Documented By: Admin: 03/05/23 18:35 Dose: 999 mls/hr Documented By: RAMONITA Ioversol (Optiray 320 100ml) 94 ml IV ONCE ONE Stop: 03/05/23 19:18 Last Admin: 03/05/23 19:18 Dose: 94 ml Documented By: ILDA Ondansetron HCl (Ondansetron Inj 2 Mg/Ml 2 Ml Vial) 4 mg IV NOW STA Stop: 03/05/23 18:14 Last Admin: 03/05/23 18:35 Dose: 4 mg Documented By: RAMONITA Imaging Data Radiologist's Impression: Chest X-Ray 03/05/23 15:51 XR chest 1V not portable CLINICAL HISTORY: Chest pain, nonspecific COMPARISON STUDY: Chest radiograph December 25, 2018. FINDINGS: There are median sternotomy wires and mediastinal surgical clips. Cardiomediastinal silhouette is stable. There is no evidence for pulmonary edema. No consolidation is present. There is no pneumothorax or pleural effusion. IMPRESSION: No acute cardiopulmonary findings. ACT 112: Negative or not required by law. Electronically signed by: Delfino Ford M.D. 03/05/2023 5:25 PM Abdomen/Pelvis CT 03/05/23 18:14 Exam(s): CT ABDOMEN + PELVIS With Contrast IV Amt: 94ML OPITRAY 320 EXAM: CT Abdomen and Pelvis With Intravenous Contrast CLINICAL HISTORY: Reason for exam: LLQ abdominal pain worsening; recent diverticuliti. TECHNIQUE: Axial computed tomography images of the abdomen and pelvis with intravenous contrast. CTDI is 26.68 mGy and DLP is 1362.7 mGy-cm. Automated exposure control was utilized for the study. A dose lowering technique was utilized adhering to the principles of ALARA. CONTRAST: Patient received 94ML OPITRAY 320 of IV contrast COMPARISON: No relevant prior studies available. FINDINGS: Lung bases: Unremarkable. No mass. No consolidation. ABDOMEN: Liver: Hepatic steatosis. Gallbladder and bile ducts: Unremarkable. No calcified stones. No ductal dilation. Pancreas: Unremarkable. No mass. No ductal dilation. Spleen: Unremarkable. No splenomegaly. Adrenals: LEFT adrenal nodule measures approximately 9 mm, which may represent an adenoma and may be confirmed on a noncontrast CT scan. Kidneys and ureters: Renal cysts measuring up to 5.4 cm in the LEFT lower pole. No hydronephrosis. Stomach and bowel: Positive for mild sigmoid diverticulitis, consisting of mild peridiverticular inflammation. No perforation or abscess. No free air. No obstruction. PELVIS: Appendix: No findings to suggest acute appendicitis. Bladder: Unremarkable. No mass. Reproductive: Unremarkable as visualized. ABDOMEN and PELVIS: Intraperitoneal space: See above. Bones/joints: Degenerative changes of the spine. No acute fracture. No dislocation. Soft tissues: Unremarkable. Vasculature: Atherosclerotic changes of the aorta. No abdominal aortic aneurysm. Lymph nodes: Unremarkable. No enlarged lymph nodes. IMPRESSION: 1. Positive for mild sigmoid diverticulitis, consisting of mild peridiverticular inflammation. No perforation or abscess. No free air. 2. LEFT adrenal nodule measures approximately 9 mm, which may represent an adenoma and may be confirmed on a noncontrast CT scan. 3. Hepatic steatosis. Electronically signed by: Tito Diego MD 03/05/23 20:22 PM Discharge Plan Visit Data Chief Complaint: Referred by Doctor Stated Complaint: REF BY DOC,CALISTA JOHN TODAY ED Provider: Ángela Mcpherson Discharge Problem: Diverticulitis, Acute hyponatremia, Generalized weakness Forms Stand Alone Forms: My [facility] [employer] Prescriptions Prescriptions: No Action valsartan 80 mg tablet 80 mg PO PM Qty: 90 3RF gabapentin 100 mg capsule 100 mg PO BID Qty: 180 3RF Rx Instructions: Take 100mg BID in addition to her 600mg BID gabapentin 600 mg tablet 600 mg PO BID Qty: 180 3RF ondansetron HCl 4 mg tablet 4 mg PO DAILY PRN (Reason: nausea and vomiting) Qty: 30 1RF metformin 500 mg tablet extended release 24 hr 1,000 mg PO BID Qty: 360 3RF atorvastatin 40 mg tablet 40 mg PO HS Qty: 90 3RF lamotrigine 100 mg tablet 200 mg PO QAM cyanocobalamin (vitamin B-12) 1,000 mcg/mL solution 1,000 mcg IM MONTHLY levalbuterol tartrate [Xopenex HFA] 45 mcg/actuation HFA aerosol inhaler 2 inh INH Q6H PRN (Reason: Shortness Of Breath) Qty: 15 3RF amoxicillin-pot clavulanate [Augmentin] 500-125 mg tablet 1 tab PO BID Qty: 20 0RF (DME) lancets Misc See Rx Instructions .ROUTE .MEDSUPPLY Qty: 100 3RF Rx Instructions: TEST ONCE DAILY (DME) OneTouch Verio test strips Strip See Rx Instructions .ROUTE .MEDSUPPLY Qty: 100 3RF Rx Instructions: TEST THREE TIMES DAILY E11.9 trazodone 100 mg tablet 100 mg PO DAILY tramadol 50 mg tablet 50 mg PO DAILY PRN (Reason: pain) Qty: 10 0RF aspirin [Celestino Low Dose Aspirin] 81 mg Tablet,Delayed Release (Dr/Ec) 81 mg PO QAM dicyclomine 10 mg capsule 10 mg PO TID PRN (Reason: Abdominal Discomfort) Rx Instructions: TAKE 1 CAPSULE BY MOUTH THREE TIMES A DAY NEEDED FOR ABDOMINAL DISCOMFORT Referrals Referrals: Pro,Ej Laura MD [Primary Care Provider] -
[2023-03-05] MEDS ORDERED: ONDANSETRON INJ 2 MG/ML 2 ML VIAL IV STA (18:13)
[2023-03-05] MEDS ORDERED: fentaNYL citrate PF 100 MCG/2 ML VIAL IV STA (18:13)
[2023-03-05] MEDS ORDERED: SODIUM CHLORIDE 0.9% 1000ML 1,000 ML IV ONE (18:13)
[2023-03-05] MEDS ORDERED: OPTIRAY 320 100ml IV ONE (19:17)
--- NOTE | 2023-03-05 20:23 | CT Scan Report ---
Exam(s): CT ABDOMEN + PELVIS With Contrast IV Amt: 94ML OPITRAY 320 EXAM: CT Abdomen and Pelvis With Intravenous Contrast CLINICAL HISTORY: Reason for exam: LLQ abdominal pain worsening; recent diverticuliti. TECHNIQUE: Axial computed tomography images of the abdomen and pelvis with intravenous contrast. CTDI is 26.68 mGy and DLP is 1362.7 mGy-cm. Automated exposure control was utilized for the study. A dose lowering technique was utilized adhering to the principles of ALARA. CONTRAST: Patient received 94ML OPITRAY 320 of IV contrast COMPARISON: No relevant prior studies available. FINDINGS: Lung bases: Unremarkable. No mass. No consolidation. ABDOMEN: Liver: Hepatic steatosis. Gallbladder and bile ducts: Unremarkable. No calcified stones. No ductal dilation. Pancreas: Unremarkable. No mass. No ductal dilation. Spleen: Unremarkable. No splenomegaly. Adrenals: LEFT adrenal nodule measures approximately 9 mm, which may represent an adenoma and may be confirmed on a noncontrast CT scan. Kidneys and ureters: Renal cysts measuring up to 5.4 cm in the LEFT lower pole. No hydronephrosis. Stomach and bowel: Positive for mild sigmoid diverticulitis, consisting of mild peridiverticular inflammation. No perforation or abscess. No free air. No obstruction. PELVIS: Appendix: No findings to suggest acute appendicitis. Bladder: Unremarkable. No mass. Reproductive: Unremarkable as visualized. ABDOMEN and PELVIS: Intraperitoneal space: See above. Bones/joints: Degenerative changes of the spine. No acute fracture. No dislocation. Soft tissues: Unremarkable. Vasculature: Atherosclerotic changes of the aorta. No abdominal aortic aneurysm. Lymph nodes: Unremarkable. No enlarged lymph nodes. IMPRESSION: 1. Positive for mild sigmoid diverticulitis, consisting of mild peridiverticular inflammation. No perforation or abscess. No free air. 2. LEFT adrenal nodule measures approximately 9 mm, which may represent an adenoma and may be confirmed on a noncontrast CT scan. 3. Hepatic steatosis. Electronically signed by: Tito Diego MD 03/05/23 20:22 PM
--- NOTE | 2023-03-05 21:41 | History & Physical Report ---
Date of Service March 05, 2023 Assessment & Plan (1) Diverticulitis: Plan: 72yo female with acute uncomplicated diverticulitis, failed outpatient therapy. Patient is afebrile, HD stable and non-toxic in appearance. No leukocytosis. She is quite tender in the LLQ. -Admit to medical -Antibiotic coverage with Zosyn 4.5gm IV q 8 hours -Morphine as needed for pain -Zofran as needed for nausea -Clear liquid diet as tolerated -Continue Dicyclomine 10mg po TID (2) Diarrhea: Plan: Patient reports several episodes of watery, non-bloody diarrhea which seemed to start after initiating Augmentin. Most likely secondary to antibiotic use -Check c. diff -Continue IVF and electrolyte repletion as needed (3) Acute hyponatremia: Plan: Ix=025, baseline of 134 (from 02/26/23). Likely secondary to volume contraction, low solute intake during the last several days. Patient has been given 1L NSS int he ER -Continue IVF - LR at 100ml/hr x 2 liters -Repeat chemistry in AM (4) Generalized weakness: Plan: Likely secondary to acute diverticulitis, dehydration and poor oral intake. No focal findings on exam. -Treatment of infection and dehydration as above -Maintain fall precautions -PT evaluation (5) CAD S/P percutaneous coronary angioplasty: Plan: Patient with history of CAD s/p PCI and CABG x 2. She follows regularly with Cardiology. Last seen on 01/07/23. She had a dobutamine stress echo performed on 01/25/23 which was unremarkable for inducible ischemia -Continue ASA 81mg po daily -Continue Atorvastatin -Continue Valsartan (6) Hyperlipemia: Plan: Chronic. Stable -Continue Atorvastatin (7) HTN (hypertension): Plan: Blood pressure mildly elevated in setting of acute pain -Continue Valsartan -Monitor BP (8) Bipolar 1 disorder, manic, mild: Plan: Stable -Continue Lamictal (9) Diabetes: Plan: Chronic. Blood [id number]. Last Hgb A1C=8.3 -Hold outpatient metformin -ISS with goal BS 110 - 140 F/E/N - LR at 100mL/hr x 2 liters, monitor electrolytes and replete as needed, Clear liquids for now Ppx - Lovenox Code - DNR/DNI per discussion with patient Dispo - Admit to medical History of Present Illness Chief Complaint: abdominal pain, weakness, diarrhea Primary Care Provider: Ej Schroeder MD Viky Michaud is a pleasant 72yo female presenting with acute, uncomplicated diverticulitis with failed outpatient therapy. Patient began developing LLQ abdominal pain on 02/28/23. She was seen by her PCP on 03/03/[address] of the abdomen which revealed acute diverticulitis without perforation or abscess. She was started on Augmentin - first dose 03/03/23 PM. She has taken 4 doses of Augmentin thus far. Unfortunately she continues to have significant LLQ abdominal pain. Also with watery, non-bloody diarrhea which started after she initiated Augmentin - reports 6 episodes of diarrhea in 20 minutes. Also with nausea, weakness and gait instability, fell in the bathroom at home - no head trauma or LOC. She has had poor appetite and decreased oral intake for the last 5 days - mainly drinking water and Gatorade. She denies fever but has been having some chills. She denies chest pain, cough or SOB. No urinary complaints or rash. No additional complaints at this time. In the ER she is afebrile, hypertensive otherwise HD stable. With significant LLQ abdominal pain improved after IV Fentanyl. ER Course: Fentanyl 50mcg IV Zofran 4mg IV NSS x 1L Allergies Allergy/AdvReac Type Severity Reaction Status Date / Time lurasidone Allergy Intermediate TARDIVE Verified 03/03/23 12:33 DYSKINESIA Phenothiazines Allergy Intermediate "EYES ROLL Verified 03/03/23 12:33 UP" lactose Allergy Mild Verified 03/03/23 12:33 bupropion AdvReac Unknown SEIZURE IN Verified 03/03/23 12:33 PAST lithium AdvReac Unknown VOMITING Verified 03/03/23 12:33 AND DIARRHEA ARTIFICIAL SWEETNERS Allergy Unknown DIARRHEA Uncoded 03/03/23 12:33 Home Medications Medication Instructions Recorded Confirmed Type aspirin 81 mg tablet,delayed 81 mg PO QAM 12/25/18 03/05/23 History release (Celestino Low Dose Aspirin) cyanocobalamin (vitamin B-12) 1,000 mcg IM MONTHLY 03/13/19 03/05/23 History 1,000 mcg/mL injection solution lamotrigine 100 mg tablet 200 mg PO QAM 03/13/19 03/05/23 History trazodone 100 mg tablet 100 mg PO DAILY 03/21/21 03/05/23 History tramadol 50 mg tablet 50 mg PO DAILY PRN pain #10 tabs 04/08/21 03/05/23 Rx valsartan 80 mg tablet 80 mg PO PM #90 tabs 04/08/22 03/05/23 Rx gabapentin 100 mg capsule 100 mg PO BID #180 caps 07/29/22 03/05/23 Rx gabapentin 600 mg tablet 600 mg PO BID #180 tabs 07/29/22 03/05/23 Rx ondansetron HCl 4 mg tablet 4 mg PO DAILY PRN nausea and 08/06/22 03/05/23 Rx vomiting #30 tabs metformin 500 mg tablet,extended 1,000 mg PO BID #360 tabs 11/26/22 03/05/23 Rx release 24 hr levalbuterol tartrate 45 2 inh inhalation Q6H PRN Shortness 12/15/22 03/05/23 Rx mcg/actuation aerosol inhaler Of Breath #15 grams (Xopenex HFA) atorvastatin 40 mg tablet 40 mg PO HS #90 tabs 02/05/23 03/05/23 Rx amoxicillin 500 mg-potassium 1 tab PO BID #20 tabs 03/03/23 03/05/23 Rx clavulanate 125 mg tablet (Augmentin) blood sugar diagnostic (OneTouch #100 ea 03/03/23 03/05/23 Rx Verio test strips) lancets #100 ea 03/03/23 03/05/23 Rx dicyclomine 10 mg capsule 10 mg PO TID PRN Abdominal 03/05/23 03/05/23 History Discomfort Past Med/Surg History Medical History Abdominal pain Abdominal pain, LLQ Anxiety Asthma RARE INH USE Bipolar disorder CAD S/P percutaneous coronary angioplasty Cervical radiculopathy Depression Diabetes Fall History of Holter monitoring YRS AGO HTN (hypertension) Hyperlipemia IBS (irritable bowel syndrome) Insomnia Lichen sclerosus et atrophicus Mixed conductive and sensorineural hearing loss of right ear with restricted hearing of left ear Pain of right orbit Photophobia of right eye Premature ventricular contractions FOLLOWS ZYSMANSKY Reflex sympathetic dystrophy Renal insufficiency Renal stones CYSTO AND SOME PASSED ON OWN Sensorineural hearing loss (SNHL) of right ear with restricted hearing of left ear Tinnitus of right ear Traumatic black eye of right side UTI (urinary tract infection) Vitamin B12 deficiency Vitamin D deficiency Surgical History H/O decompression of ulnar nerve RIGHT 2018 H/O ovarian cystectomy H/O repair of rotator cuff LEFT WITH PARTIAL COLLAR BONE REMOVAL H/O: section X2 History of ankle surgery RIGHT> NO HARDWARE History of appendectomy History of cardiac cath X2> NO STENTS LAST 1996 History of carpal tunnel repair BILAT History of cataract removal with insertion of prosthetic lens BILAT History of colonoscopy History of cystoscopy History of laminectomy L4-6 History of neck surgery LAPAROTOMY C5-7> ROM IS GOOD History of ovarian cystectomy History of tonsillectomy History of tooth extraction X3 Hx of CABG AUG 1997 > 2 VESSEL> TORY Family History Father Nephrolithiasis Renal cyst Kidney disease Hypertension History of nephrectomy Prostate cancer Cataract Arthritis Gout ESRD (end stage renal disease) Grandmother Hypertension Stroke syndrome Grandfather Hypertension Prostate cancer Mother Type 2 diabetes mellitus Pancreatitis Hypertension Macular degeneration Cataract Malignant melanoma of skin Vascular dementia Transient ischemic attack Grandfather Lung cancer Grandmother Type 2 diabetes mellitus Obesity Brother Prostate cancer Hypertension Type 2 diabetes mellitus Nephrolithiasis Rosacea Chronic sinusitis Hyperlipidemia Arthritis Liver cancer Unknown Dysplastic nevus Sister Hyperlipidemia Daughter Gestational diabetes Son Asthma Other No family history of adverse response to anesthesia No family history of bleeding disorder Denies family history of Colon cancer Ovarian cancer Myocardial infarction Breast cancer Social History Smoking Status: Never smoker Second Hand Exposure: No; Do You Dip or Chew Tobacco: No; Hx Alcohol Use: No Hx Substance Use: No Preferred Language: Algerian Communication Ability: Effective Visual Impairment: No Limitations Hearing Ability: Normal Publicist Required: No Beliefs That Will Affect Care: None marital status: Single Current Living Situation: Alone current occupational status: retired current occupation: administrative director at [employer] Feels Safe at Home: Yes Childhood Exposure to Second-Hand Smoke: No Diet: regular Dental Care, Regularly: Yes Physical Activity Frequency: Does not Exercise Seatbelt Use: always Sunscreen Use: Yes (sometime for sunscreen but always where a sunhat) Assistive Devices: Glasses Review of Systems Review of Systems: All systems reviewed & are unremarkable except as noted in HPI & below Physical Exam Physical Exam: General: patient resting comfortably, NAD, non-toxic in appearance, AA&O x 4 Skin: warm, dry, intact, no rashes or lesions HEENT: NC/AT, PERRL, EOMI, anicteric sclera, conjunctiva without injection, external ear normal to inspection and nontender, nares patent, slightly dry mucus membranes, dentition intact, no oropharyngeal lesions, neck supple, trachea midline, no LAD, no thyromegaly, no JVD Heart: +S1/S2, regular, no m/r/g Lungs: equal air entry bilaterally, no rales/rhonchi/wheezes Abd: +BS, soft, mildly distended, tender in the LLQ with palpation, no peritonitis/rebound, no masses/organomegaly/ascites Ext: warm, 2+ pulses in UE/LE bilaterally, no clubbing/cyanosis or edema Neuro: nonfocal, patient AA&O x 4, speech intact, no facial droop, moving all extremities on command with equal strength 5/5 Results & Data Results & Data Vital Signs (Past 12 Hours) Vital Signs Temp Pulse Pulse Resp BP BP Pulse Ox 03/05/23 20:00 93 H 16 152/83 H 95 03/05/23 18:23 85 18 203/116 H 96 03/05/23 18:11 87 03/05/23 15:49 36.6 C 94 H 16 193/90 H 99 O2 Del Method 03/05/23 20:00 Room Air 03/05/23 18:23 Room Air 03/05/23 18:11 03/05/23 15:49 Room Air Laboratory Results Laboratory Results WBC 6.89 K/ul (4.8-10.8) 03/05/23 16:45 RBC 4.14 M/uL (4.20-5.40) L 03/05/23 16:45 Hgb 11.4 g/dl (12.0-16.0) L 03/05/23 16:45 Hct 34.1 % (37.0-47.0) L 03/05/23 16:45 MCV 82.4 fL (80.0-100.0) 03/05/23 16:45 MCH 27.5 pg (25.0-34.0) 03/05/23 16:45 MCHC 33.4 g/dL (32.0-36.0) 03/05/23 16:45 RDW Std Deviation 38.9 fL (36.4-46.3) 03/05/23 16:45 RDW Coeff of Maribel 13.0 % (11.5-14.5) 03/05/23 16:45 Plt Count 382 K/uL (130-400) 03/05/23 16:45 MPV 9.4 fL (9.4-12.4) 03/05/23 16:45 Immature Gran % (Auto) 0.4 % 03/05/23 16:45 Neut % (Auto) 68.2 % 03/05/23 16:45 Lymph % (Auto) 21.9 % 03/05/23 16:45 Daggett % (Auto) 7.1 % 03/05/23 16:45 Eos % (Auto) 1.7 % 03/05/23 16:45 Baso % (Auto) 0.7 % 03/05/23 16:45 Neut # (Auto) 4.69 K/uL (1.40-6.50) 03/05/23 16:45 Lymph # (Auto) 1.51 K/uL (1.2-3.4) 03/05/23 16:45 Daggett # (Auto) 0.49 K/uL (0.11-0.59) 03/05/23 16:45 Eos # (Auto) 0.12 K/uL (0-0.50) 03/05/23 16:45 Baso # (Auto) 0.05 K/uL (0-0.2) 03/05/23 16:45 Immature Gran # (Auto) 0.03 K/uL (0.01-0.20) 03/05/23 16:45 PT 10.5 Seconds (9.0-12.0) 03/05/23 16:45 INR 1.0 (0.9-1.1) 03/05/23 16:45 APTT 26.8 Seconds (21.0-31.0) 03/05/23 16:45 PTT Ratio 1.0 03/05/23 16:45 Sodium 128 mmol/L (136-145) L 03/05/23 16:45 Potassium 3.8 mmol/L (3.5-5.1) 03/05/23 16:45 Chloride 92 mmol/L (98-107) L 03/05/23 16:45 Carbon Dioxide 23 mmol/L (21-32) 03/05/23 16:45 Anion Gap 13 (3-11) H 03/05/23 16:45 BUN 28 mg/dl (6-23) H 03/05/23 16:45 Creatinine 1.45 mg/dl (0.6-1.2) H 03/05/23 16:45 Est Cr Clr Drug Dosing 33.5 ml/min 03/05/23 16:45 Est GFR ( Amer) 41.3 ml/min 03/05/23 16:45 Est GFR (Non-Af Amer) 35.6 ml/min 03/05/23 16:45 BUN/Creatinine Ratio 19.3 (10-20) 03/05/23 16:45 Glucose 135 mg/dl (70-99(Fasting)) H 03/05/23 16:45 POC Glucose 129 mg/dl (70-99) H 03/05/23 17:48 Calcium 9.7 mg/dl (8.6-10.3) 03/05/23 16:45 Total Bilirubin 0.5 mg/dl (0.2-1.0) 03/05/23 16:45 AST 18 U/L (13-39) 03/05/23 16:45 ALT 17 U/L (7-52) 03/05/23 16:45 Alkaline Phosphatase 93 U/L (34-104) 03/05/23 16:45 Troponin I High Sens 7.2 pg/ml (0-14) 03/05/23 16:45 Total Protein 7.4 gm/dl (6.0-8.3) 03/05/23 16:45 Albumin 4.4 gm/dl (3.4-5.0) 03/05/23 16:45 Globulin 3.0 gm/dl (2.5-4.0) 03/05/23 16:45 Albumin/Globulin Ratio 1.5 (0.9-2) 03/05/23 16:45 Procalcitonin 0.09 ng/ml (0-0.5) 03/05/23 16:45 Impressions Chest X-Ray 03/05/23 15:51 XR chest 1V not portable CLINICAL HISTORY: Chest pain, nonspecific COMPARISON STUDY: Chest radiograph December 25, 2018. FINDINGS: There are median sternotomy wires and mediastinal surgical clips. Cardiomediastinal silhouette is stable. There is no evidence for pulmonary edema. No consolidation is present. There is no pneumothorax or pleural effusion. IMPRESSION: No acute cardiopulmonary findings. ACT 112: Negative or not required by law. Electronically signed by: Delfino Ford M.D. 03/05/2023 5:25 PM Abdomen/Pelvis CT 03/05/23 18:14 Exam(s): CT ABDOMEN + PELVIS With Contrast IV Amt: 94ML OPITRAY 320 EXAM: CT Abdomen and Pelvis With Intravenous Contrast CLINICAL HISTORY: Reason for exam: LLQ abdominal pain worsening; recent diverticuliti. TECHNIQUE: Axial computed tomography images of the abdomen and pelvis with intravenous contrast. CTDI is 26.68 mGy and DLP is 1362.7 mGy-cm. Automated exposure control was utilized for the study. A dose lowering technique was utilized adhering to the principles of ALARA. CONTRAST: Patient received 94ML OPITRAY 320 of IV contrast COMPARISON: No relevant prior studies available. FINDINGS: Lung bases: Unremarkable. No mass. No consolidation. ABDOMEN: Liver: Hepatic steatosis. Gallbladder and bile ducts: Unremarkable. No calcified stones. No ductal dilation. Pancreas: Unremarkable. No mass. No ductal dilation. Spleen: Unremarkable. No splenomegaly. Adrenals: LEFT adrenal nodule measures approximately 9 mm, which may represent an adenoma and may be confirmed on a noncontrast CT scan. Kidneys and ureters: Renal cysts measuring up to 5.4 cm in the LEFT lower pole. No hydronephrosis. Stomach and bowel: Positive for mild sigmoid diverticulitis, consisting of mild peridiverticular inflammation. No perforation or abscess. No free air. No obstruction. PELVIS: Appendix: No findings to suggest acute appendicitis. Bladder: Unremarkable. No mass. Reproductive: Unremarkable as visualized. ABDOMEN and PELVIS: Intraperitoneal space: See above. Bones/joints: Degenerative changes of the spine. No acute fracture. No dislocation. Soft tissues: Unremarkable. Vasculature: Atherosclerotic changes of the aorta. No abdominal aortic aneurysm. Lymph nodes: Unremarkable. No enlarged lymph nodes. IMPRESSION: 1. Positive for mild sigmoid diverticulitis, consisting of mild peridiverticular inflammation. No perforation or abscess. No free air. 2. LEFT adrenal nodule measures approximately 9 mm, which may represent an adenoma and may be confirmed on a noncontrast CT scan. 3. Hepatic steatosis. Electronically signed by: Tito Diego MD 03/05/23 20:22 PM ECG Additional Comments: EKG with NSR at 91bpm, normal axis, BY=996, QRS=80, FRd=082, no acute ischemic changes PG Care Time/CCT Total # of Minutes Spent Total Time Spent with Patient: Total time spent is greater than 50% in coordination of care (as documented) at patient's floor/unit and/or counseling patient: Coding Level of Care Code 26015 INT INP/OBS CARE 375MIN Diagnoses Diverticulitis K57.92 Diarrhea R19.7 Acute hyponatremia E87.1 Generalized weakness R53.1 CAD S/P percutaneous coronary angioplasty I25.10; Z98.61 Hyperlipemia E78.5 HTN (hypertension) I10 Bipolar 1 disorder, manic, mild F31.11 Diabetes E11.9
[2023-03-05] MEDS ORDERED: LEVALBUTEROL TARTRATE 15 GM HFA.AER.AD INH PRN (23:46)
[2023-03-05] MEDS ORDERED: GLUCAGON FOR INJ 1 MG VIAL SQ PRN (23:46)
[2023-03-05] MEDS ORDERED: GLUCOSE 10 TAB/TUBE PO PRN (23:46)
[2023-03-05] MEDS ORDERED: DICYCLOMINE HCL 10 MG CAP PO PRN (23:46)
[2023-03-05] MEDS ORDERED: traMADol HCL 50 MG TABLET PO PRN (23:46)
[2023-03-05] MEDS ORDERED: GLUCOSE 40% GEL 15 GM TUBE PO PRN (23:46)
[2023-03-05] MEDS ORDERED: ONDANSETRON INJ 2 MG/ML 2 ML VIAL IV PRN (23:46)
[2023-03-05] MEDS ORDERED: CARBOHYDRATES FOR HYPOGLYCEMIA PO PRN (23:46)
[2023-03-05] MEDS ORDERED: DEXTROSE 50% 50 ML SYRINGE IV PRN (23:46)
[2023-03-06 00:17] LABS: Magnesium 1.6 mg/dl (1.7-2.4); Phosphorus 2.9 mg/dl (2.5-4.9)
[2023-03-06] MEDS ORDERED: PIPERACILLIN/TAZOBACTAM 4.5 GM in DEXTROSE 5% 100 ML IV ONE (01:00)
[2023-03-06] MEDS: MoRPHine SULFATE 2 MG/ML CARP IV PRN ×2 (01:11→07:26)
[2023-03-06] MEDS: LACTATED RINGER'S 1,000 ML IV SCH ×2 (01:48→11:21)
[2023-03-06] MEDS: PIPERACILLIN/TAZOBACTAM 4.5 GM in DEXTROSE 5% 100 ML IV SCH ×3 (06:12→22:27)
[2023-03-06 06:19] LABS: Hematocrit (blood only) 31.5 % (37.0-47.0); Hemoglobin 10.7 g/dl (12.0-16.0); Mean Corpuscular Hemoglobin 27.9 pg (25.0-34.0); Mean Platelet Volume 9.7 fL (9.4-12.4); Platelet Count 347 K/uL (130-400); RDW Standard Deviation 38.8 fL (36.4-46.3); Red Blood Count 3.84 M/uL (4.20-5.40); White Blood Count 5.52 K/ul (4.8-10.8)
[2023-03-06 06:42] LABS: BUN Creatinine Ratio 16.5 (10-20); Calcium 9.7 mg/dl (8.6-10.3); Creatinine Clr Calc Pharmacy 39.8 ml/min; Est GFR (African American) 51.4 ml/min; Est GFR (Non-African American) 44.4 ml/min; Potassium 3.9 mmol/L (3.5-5.1)
[2023-03-06] MEDS: GABAPENTIN 100 MG CAP PO SCH ×2 (08:30→19:49)
[2023-03-06] MEDS: lamoTRIgine 100 MG TAB PO SCH (08:30)
[2023-03-06] MEDS: ASPIRIN 81 MG ECTAB PO SCH (08:30)
[2023-03-06] MEDS: GABAPENTIN 600 MG TAB PO SCH ×2 (08:30→19:48)
[2023-03-06] MEDS: ENOXAPARIN INJ 40 MG/0.4 ML SYR SQ SCH (08:31)
[2023-03-06] MEDS: INSULIN ASPART PER UNIT CHARGE SC SCH ×4 (08:36→20:53)
--- NOTE | 2023-03-06 12:19 | Hospitalist Progress Note ---
Date of Service March 06, 2023 Assessment & Plan (1) Diverticulitis: Plan: 72yo female with acute uncomplicated diverticulitis, failed outpatient therapy. -Continue symptomatic pain mgt -Antibiotic coverage with Zosyn 4.5gm IV q 8 hours -Morphine as needed for pain -Zofran as needed for nausea -Clear liquid diet as tolerated -Continue Dicyclomine 10mg po TID (2) Diarrhea: Plan: Patient reports several episodes of watery, non-bloody diarrhea which seemed to start after initiating Augmentin. Most likely secondary to antibiotic use -Check c. diff -Continue IVF and electrolyte repletion as needed (3) Acute hyponatremia: Plan: Resolved (4) Generalized weakness: Plan: Likely secondary to acute diverticulitis, dehydration and poor oral intake. No focal findings on exam. -Treatment of infection and dehydration as above -Maintain fall precautions -PT evaluation (5) CAD S/P percutaneous coronary angioplasty: Plan: Patient with history of CAD s/p PCI and CABG x 2. She follows regularly with Cardiology. Last seen on 01/07/23. She had a dobutamine stress echo performed on 01/25/23 which was unremarkable for inducible ischemia -Continue ASA 81mg po daily -Continue Atorvastatin -Continue Valsartan (6) Hyperlipemia: Plan: Chronic. Stable -Continue Atorvastatin (7) HTN (hypertension): Plan: Blood pressure mildly elevated in setting of acute pain -Continue Valsartan -Monitor BP (8) Bipolar 1 disorder, manic, mild: Plan: Stable -Continue Lamictal (9) Diabetes: Plan: Blood glucose under fair control Last Hgb A1C=8.3 -Hold outpatient metformin -ISS with goal BS 110 - 140 Plan F/E/N - LR at 100mL/hr x 2 liters, monitor electrolytes and replete as needed, Clear liquids for now Ppx - Lovenox Code - DNR/DNI per discussion with patient Dispo - continue to monitor Admission and Anticipated Discharge Date Admission Date: March 05, 2023 Subjective patient seen and examined, still has some abdominal pain Review of Systems Review of Systems: All systems reviewed are negative, apart from the ones contained in the history. Physical Exam Physical Exam: The patient is awake, alert and oriented 3, well developed and well nourished, normocephalic and atraumatic, lying in bed and in no acute distress. HEENT--PERRL, EOMI, mucous membranes and oropharynx mildly dry Neck--supple. No JVD. No bruits. Thyroid normal, trachea midline, no adenopathy. Heart--normal S1 and S2. No murmurs, rubs or gallops. Lungs--clear bilaterally, no respiratory distress, no accessory muscle use. Abdomen--normal bowel sounds and soft. Mild epigastric and left sided abdominal pain Extremities--no cyanosis or clubbing. No edema. Dermatologic--normal skin turgor, normal color, no abnormal lymph nodes, no rash. Neurologic--cranial nerves II through XII grossly intact. Rheumatologic--normal range of motion. Psychiatric--normal affect. Results & Data Results & Data Vital Signs (Past 12 Hours) Vital Signs Temp Pulse Resp BP Pulse Ox O2 Del Method 03/06/23 07:53 97.9 F 75 16 134/80 94 Room Air PG Care Time/CCT Total # of Minutes Spent Total Time Spent with Patient: Total time spent is greater than 50% in coordination of care (as documented) at patient's floor/unit and/or counseling patient: Coding Level of Care Code 64818 SUB INP/OBS CARE 2/35MIN Diagnoses Diverticulitis K57.92 Diarrhea R19.7 Acute hyponatremia E87.1 Generalized weakness R53.1 CAD S/P percutaneous coronary angioplasty I25.10; Z98.61 Hyperlipemia E78.5 HTN (hypertension) I10 Bipolar 1 disorder, manic, mild F31.11 Diabetes E11.9 Time Spent (min) 35
--- NOTE | 2023-03-06 13:09 | Electrocardiogram Report ---
Test Reason : Blood Pressure : / mmHG Vent. Rate : 091 BPM Atrial Rate : 091 BPM P-R Int : 170 ms QRS Dur : 080 ms QT Int : 330 ms P-R-T Axes : -09 027 -41 degrees QTc Int : 405 ms Normal sinus rhythm Septal infarct , age undetermined Abnormal ECG When compared with ECG of 12-AUG-2020 16:46, Septal infarct is now Present ST now depressed in Inferior leads Nonspecific T wave abnormality, worse in Inferior leads Confirmed by Ej Padilla ([id number]) on 03/06/2023 1:09:39 PM Referred By: Ej Schroeder Confirmed By:Ej Padilla
[2023-03-06] MEDS ORDERED: ACETAMINOPHEN 500 MG TAB PO PRN (20:06)
[2023-03-06] MEDS ORDERED: ATORVASTATIN 40 MG TAB PO SCH (21:00)
[2023-03-06] MEDS ORDERED: traZODone HCL 100 MG TAB PO SCH (21:00)
[2023-03-06] MEDS ORDERED: VALSARTAN 80 MG TAB PO SCH (21:00)
[2023-03-07] MEDS: PIPERACILLIN/TAZOBACTAM 4.5 GM in DEXTROSE 5% 100 ML IV SCH (05:54)
[2023-03-07 06:55] LABS: Hematocrit (blood only) 32.4 % (37.0-47.0); Hemoglobin 10.7 g/dl (12.0-16.0); Mean Corpuscular Hemoglobin 27.7 pg (25.0-34.0); Mean Corpuscular Volume 83.9 fL (80.0-100.0); Mean Platelet Volume 9.5 fL (9.4-12.4); Platelet Count 340 K/uL (130-400); RDW Coefficient of Variation 13.2 % (11.5-14.5); RDW Standard Deviation 40.1 fL (36.4-46.3); Red Blood Count 3.86 M/uL (4.20-5.40); White Blood Count 4.76 K/ul (4.8-10.8)
[2023-03-07] MEDS: ASPIRIN 81 MG ECTAB PO SCH (07:24)
[2023-03-07] MEDS: lamoTRIgine 100 MG TAB PO SCH (07:24)
[2023-03-07] MEDS: GABAPENTIN 600 MG TAB PO SCH (07:25)
[2023-03-07] MEDS: GABAPENTIN 100 MG CAP PO SCH (07:25)
[2023-03-07] MEDS: ENOXAPARIN INJ 40 MG/0.4 ML SYR SQ SCH (07:25)
[2023-03-07 07:30] LABS: BUN Creatinine Ratio 8.6 (10-20); Calcium 9.6 mg/dl (8.6-10.3); Creatinine Clr Calc Pharmacy 31.6 ml/min; Est GFR (Non-African American) 33.7 ml/min; Potassium 4.1 mmol/L (3.5-5.1)
[2023-03-07] MEDS: INSULIN ASPART PER UNIT CHARGE SC SCH (08:21)
--- NOTE | 2023-03-07 11:40 | Discharge Summary ---
Date of Service March 07, 2023 Admission HPI Per Admitting Provider Viky Michaud is a pleasant 72yo female presenting with acute, uncomplicated diverticulitis with failed outpatient therapy. Patient began developing LLQ abdominal pain on 02/28/23. She was seen by her PCP on 03/03/[address] of the abdomen which revealed acute diverticulitis without perforation or abscess. She was started on Augmentin - first dose 03/03/23 PM. She has taken 4 doses of Augmentin thus far. Unfortunately she continues to have significant LLQ abdominal pain. Also with watery, non-bloody diarrhea which started after she initiated Augmentin - reports 6 episodes of diarrhea in 20 minutes. Also with nausea, weakness and gait instability, fell in the bathroom at home - no head trauma or LOC. She has had poor appetite and decreased oral intake for the last 5 days - mainly drinking water and Gatorade. She denies fever but has been having some chills. She denies chest pain, cough or SOB. No urinary complaints or rash. No additional complaints at this time. In the ER she is afebrile, hypertensive otherwise HD stable. With significant LLQ abdominal pain improved after IV Fentanyl. ER Course: Fentanyl 50mcg IV Zofran 4mg IV NSS x 1L Principal Diagnosis acute diverticulitis Discharge Exam The patient is awake, alert and oriented 3, well developed and well nourished, normocephalic and atraumatic, lying in bed and in no acute distress. HEENT--PERRL, EOMI, mucous membranes and oropharynx mildly dry Neck--supple. No JVD. No bruits. Thyroid normal, trachea midline, no adenopathy. Heart--normal S1 and S2. No murmurs, rubs or gallops. Lungs--clear bilaterally, no respiratory distress, no accessory muscle use. Abdomen--normal bowel sounds and soft. Mild epigastric and left sided abdominal pain Extremities--no cyanosis or clubbing. No edema. Dermatologic--normal skin turgor, normal color, no abnormal lymph nodes, no rash. Neurologic--cranial nerves II through XII grossly intact. Rheumatologic--normal range of motion. Psychiatric--normal affect. Discharge Data Allergies Allergy/AdvReac Type Severity Reaction Status Date / Time lurasidone Allergy Intermediate TARDIVE Verified 06/14/23 12:33 DYSKINESIA Phenothiazines Allergy Intermediate "EYES ROLL Verified 03/03/23 12:33 UP" lactose Allergy Mild Verified 03/03/23 12:33 aspartame Allergy Verified 03/06/23 09:02 sucralose Allergy Verified 03/06/23 09:02 bupropion AdvReac Unknown SEIZURE IN Verified 03/03/23 12:33 PAST lithium AdvReac Unknown VOMITING Verified 03/03/23 12:33 AND DIARRHEA ARTIFICIAL SWEETNERS Allergy Unknown DIARRHEA Uncoded 03/03/23 12:33 Consultations 03/05/23 21:15 ED Decision to Admit Stat Ordered Studies 03/05/23 18:14 CT Abd and Pelvis [CT abd pelvis IV con only] Stat Hospital Course (1) Diverticulitis: 72yo female with acute uncomplicated diverticulitis, failed outpatient therapy. -Continue symptomatic pain mgt -Antibiotic coverage with Zosyn 4.5gm IV q 8 hours, transition to p.o. ciprofloxacin and Flagyl -Morphine as needed for pain -Zofran as needed for nausea -Clear liquid diet as tolerated -Continue Dicyclomine 10mg po TID (2) Diarrhea: Patient reports several episodes of watery, non-bloody diarrhea which seemed to start after initiating Augmentin. Most likely secondary to antibiotic use -Check c. diff -Continue IVF and electrolyte repletion as needed (3) Acute hyponatremia: Resolved (4) Generalized weakness: Likely secondary to acute diverticulitis, dehydration and poor oral intake. No focal findings on exam. -Treatment of infection and dehydration as above -Maintain fall precautions -PT evaluation (5) CAD S/P percutaneous coronary angioplasty: Patient with history of CAD s/p PCI and CABG x 2. She follows regularly with Cardiology. Last seen on 01/07/23. She had a dobutamine stress echo performed on 01/25/23 which was unremarkable for inducible ischemia -Continue ASA 81mg po daily -Continue Atorvastatin -Continue Valsartan (6) Hyperlipemia: Chronic. Stable -Continue Atorvastatin (7) HTN (hypertension): Blood pressure mildly elevated in setting of acute pain -Continue Valsartan -Monitor BP (8) Bipolar 1 disorder, manic, mild: Stable -Continue Lamictal (9) Diabetes: Blood glucose under fair control Last Hgb A1C=8.3 -Hold outpatient metformin -ISS with goal BS 110 - 140 Plan Discharge home Total Time Total Time Spent Total Time Spent (In Minutes): 35 minutes Discharge Plan Discharge Items Patient Disposition: Home - Self-Care Reason For Visit: ACUTE DIVERTICULITIS, HYPONATREMIA Discharge Diagnosis: acute diverticulitis Activity: Resume your previous activity Non-emergency contact: Primary Care Provider Call non-emergency contact if: you have any medication questions Follow-up/Referrals: Ej Schroeder MD [Primary Care Provider] - 03/15/23 2:00 pm Diet: Regular Addtl Attending Provider Instructions: please follow up with your regular PCP Pending Studies at Discharge: No Stand-Alone Forms: My [facility] [employer], Smoking Cessation Medications and DC Order Prescriptions: New ciprofloxacin HCl 500 mg tablet 500 mg PO BID 5 Days Qty: 10 0RF metronidazole [Flagyl] 375 mg capsule 375 mg PO BID 5 Days Qty: 10 0RF Continued valsartan 80 mg tablet 80 mg PO PM Qty: 90 3RF gabapentin 100 mg capsule 100 mg PO BID Qty: 180 3RF Rx Instructions: Take 100mg BID in addition to her 600mg BID gabapentin 600 mg tablet 600 mg PO BID Qty: 180 3RF ondansetron HCl 4 mg tablet 4 mg PO DAILY PRN (Reason: nausea and vomiting) Qty: 30 1RF metformin 500 mg tablet extended release 24 hr 1,000 mg PO BID Qty: 360 3RF atorvastatin 40 mg tablet 40 mg PO HS Qty: 90 3RF lamotrigine 100 mg tablet 200 mg PO QAM cyanocobalamin (vitamin B-12) 1,000 mcg/mL solution 1,000 mcg IM MONTHLY levalbuterol tartrate [Xopenex HFA] 45 mcg/actuation HFA aerosol inhaler 2 inh INH Q6H PRN (Reason: Shortness Of Breath) Qty: 15 3RF (DME) lancets Misc See Rx Instructions .ROUTE .MEDSUPPLY Qty: 100 3RF Rx Instructions: TEST ONCE DAILY (DME) OneTouch Verio test strips Strip See Rx Instructions .ROUTE .MEDSUPPLY Qty: 100 3RF Rx Instructions: TEST THREE TIMES DAILY E11.9 trazodone 100 mg tablet 100 mg PO DAILY tramadol 50 mg tablet 50 mg PO DAILY PRN (Reason: pain) Qty: 10 0RF aspirin [Celestino Low Dose Aspirin] 81 mg Tablet,Delayed Release (Dr/Ec) 81 mg PO QAM dicyclomine 10 mg capsule 10 mg PO TID PRN (Reason: Abdominal Discomfort) Rx Instructions: TAKE 1 CAPSULE BY MOUTH THREE TIMES A DAY NEEDED FOR ABDOMINAL DISCOMFORT Discontinued amoxicillin-pot clavulanate [Augmentin] 500-125 mg tablet 1 tab PO BID Qty: 20 0RF Discharge Orders: Discharge Order (Routine); Ordered 03/07/23 Ordered By: Frankie Maynard Admission Data Admit Date/Time: 03/05/23 21:24 Attending Provider: Frnakie Maynard Admit Provider: Kandice Day Primary Care Provider: Ej Schroeder Other Providers: Kandice Day Other Interventions: Discharge Summary Assessment (RN) Last Done: 03/07/23 10:53 Coding Level of Care Code 78185 INP/OBS DISCH >30 MIN Diagnoses Diverticulitis K57.92 Diarrhea R19.7 Acute hyponatremia E87.1 Generalized weakness R53.1 CAD S/P percutaneous coronary angioplasty I25.10; Z98.61 Hyperlipemia E78.5 HTN (hypertension) I10 Bipolar 1 disorder, manic, mild F31.11 Diabetes E11.9 Time Spent (min) 35
== END 2023-03-07 11:36 | disposition home or self-care (01) | DRG 392 ==
LOC: ED 15:45 → 3E 21:24 → SUATTDRO 21:24 → 3E 22:56

== ENCOUNTER 2023-03-13 02:38 | Inpatient (IN) ==
[2023-03-13] MEDS ORDERED: SODIUM CHLORIDE 0.9% 1000ML 1,000 ML IV SCH (03:00)
[2023-03-13 03:19] LABS: Basophils # (auto) 0.05 K/uL (0-0.2); Basophils % (auto) 0.6 %; Eosinophils # (auto) 0.14 K/uL (0-0.50); Eosinophils % (auto) 1.6 %; Hematocrit (blood only) 36.4 % (37.0-47.0); Hemoglobin 11.8 g/dl (12.0-16.0); Immature Granulocytes # (auto) 0.04 K/uL (0.01-0.20); Immature Granulocytes % (auto) 0.5 %; Lymphocytes # (auto) 2.13 K/uL (1.2-3.4); Mean Corpuscular Hemoglobin 27.6 pg (25.0-34.0); Mean Corpuscular Hgb Conc 32.4 g/dL (32.0-36.0); Mean Platelet Volume 9.6 fL (9.4-12.4); Monocytes # (auto) 0.57 K/uL (0.11-0.59); Monocytes % (auto) 6.7 %; Neutrophils # (auto) 5.59 K/uL (1.40-6.50); Neutrophils % (auto) 65.6 %; Platelet Count 366 K/uL (130-400); RDW Coefficient of Variation 13.6 % (11.5-14.5); RDW Standard Deviation 41.5 fL (36.4-46.3); Red Blood Count 4.28 M/uL (4.20-5.40); White Blood Count 8.52 K/ul (4.8-10.8)
[2023-03-13] MEDS ORDERED: ONDANSETRON INJ 2 MG/ML 2 ML VIAL IV STA (03:19)
[2023-03-13 03:22] LABS: Albumin Globulin Ratio 1.8 (0.9-2); Albumin Level 4.3 gm/dl (3.4-5.0); BUN Creatinine Ratio 5.7 (10-20); Bilirubin,Total 0.5 mg/dl (0.2-1.0); Calcium 9.3 mg/dl (8.6-10.3); Creatinine Clr Calc Pharmacy 30.7 ml/min; Est GFR (African American) 37.2 ml/min; Est GFR (Non-African American) 32.1 ml/min; Globulin 2.4 gm/dl (2.5-4.0); Magnesium 1.1 mg/dl (1.7-2.4); Potassium 3.3 mmol/L (3.5-5.1); Total Protein 6.7 gm/dl (6.0-8.3)
[2023-03-13 03:29] LABS: Troponin I High Sensitivity 9.5 pg/ml (0-14)
[2023-03-13] MEDS ORDERED: POTASSIUM CHLORIDE / WTR 10 MEQ/100 ML PLCT IV ONE (03:42)
[2023-03-13] MEDS ORDERED: MAGNESIUM SULFATE / D5W 1 GM/100 ML BAG IV STA (03:43)
--- NOTE | 2023-03-13 04:58 | History & Physical Report ---
Date of Service March 13, 2023 Assessment & Plan (1) Vertebro basilar insufficiency: (2) Disequilibrium: (3) CAD S/P percutaneous coronary angioplasty: (4) HTN (hypertension): (5) Hyperlipemia: (6) Diverticulitis: (7) Generalized weakness: (8) Abdominal pain, LLQ: (9) Hyponatremia: (10) Hypomagnesemia: (11) Hypokalemia: (12) Diarrhea: (13) Bipolar 1 disorder, manic, mild: (14) Depression: (15) GERD (gastroesophageal reflux disease): (16) Diabetes: Plan Diverticulitis/GERD/diarrhea- Patient was admitted from 03/05-03/07/2023. She had CT scans of abdomen pelvis performed on 03/03 and 03/05, and asked that no additional CTs be performed this admission Patient does continue have some mild left lower quadrant tenderness, but improved She has not been able to eat anything significantly since she was discharged on 03/07 She is status post 1 L normal saline in the ED Pantoprazole 40 mg IV daily NSS + KCl 20 mEq at 60 mils per hour x1 L Zofran 4 mg IV every 6 hours as needed for nausea or vomiting Electrolyte disturbances/acute kidney injury on CKD- Creatinine 1.58 on admission, with base 1.21 Magnesium is 1.1, potassium 3.3, and sodium 130 She is status post 1 L normal saline in ED Given magnesium sulfate 1 g IV in the ED, will give 2 additional grams for total of 3 Given 1K rider 10 mEq in the ED, she did report some burning, and it will be slowed down to as low as possible right We will give NSS + KCl 20 mEq at 60 mils per hour x1 L for remainder of corre ction Repeat CBC with differential, renal panel and magnesium level in a.m. Bipolar disorder type I, manic, mild/depression- Continue usual medications, gabapentin, lamotrigine, trazodone Diabetes mellitus- Would hold metformin until patient is completely back to normal from her diverticulitis Placed on Accu-Cheks with NovoLog SSI Generalized weakness- Patient should have the PT/OT assessment prior to discharge History of Present Illness Chief Complaint: The patient presents to the emergency department with generalized weakness, near falls, nausea without vomiting, complaining of decreased oral intake since discharge from [facility] on 03/07/2023, having been treated for diverticulitis, and completed follow-up outpatient course of Cipro and Flagyl Primary Care Provider: Ej Schroeder MD The patient is a 72-year-old female with a past medical history including SNHL bilaterally asymmetrically, CAD status post PTCA, hypertension, status post CABG hyponatremia, osteopenia, diabetic nephropathy, disequilibrium, vertebrobasilar insufficiency, bipolar 1 disorder, mild manic, depression, diabetes, GERD, RSD and B12 and D deficiencies. She was most recently admitted to [facility] from 03/05- 03/07/2023 for diverticulitis, and completed a course of Cipro and Flagyl orally upon discharge. She has had persistent nausea with decreased oral intake, and has had persistent generalized weakness and nausea without vomiting. She continues to have some mild left lower quadrant discomfort. She did resume all of her usual medications, which included metformin Allergies Allergy/AdvReac Type Severity Reaction Status Date / Time lurasidone Allergy Intermediate TARDIVE Verified 03/03/23 12:33 DYSKINESIA Phenothiazines Allergy Intermediate "EYES ROLL Verified 03/03/23 12:33 UP" lactose Allergy Mild Verified 03/03/23 12:33 aspartame Allergy Verified 03/06/23 09:02 sucralose Allergy Verified 03/06/23 09:02 bupropion AdvReac Unknown SEIZURE IN Verified 03/03/23 12:33 PAST lithium AdvReac Unknown VOMITING Verified 03/03/23 12:33 AND DIARRHEA ARTIFICIAL SWEETNERS Allergy Unknown DIARRHEA Uncoded 03/03/23 12:33 Home Medications Medication Instructions Recorded Confirmed Type aspirin 81 mg tablet,delayed 81 mg PO QAM 12/25/18 03/08/23 History release (Celestino Low Dose Aspirin) cyanocobalamin (vitamin B-12) 1,000 mcg IM MONTHLY 03/13/19 03/08/23 History 1,000 mcg/mL injection solution lamotrigine 100 mg tablet 200 mg PO QAM 03/13/19 03/08/23 History trazodone 100 mg tablet 100 mg PO DAILY 03/21/21 03/08/23 History tramadol 50 mg tablet 50 mg PO DAILY PRN pain #10 tabs 04/08/21 03/08/23 Rx valsartan 80 mg tablet 80 mg PO PM #90 tabs 04/08/22 03/08/23 Rx gabapentin 100 mg capsule 100 mg PO BID #180 caps 07/29/22 03/08/23 Rx gabapentin 600 mg tablet 600 mg PO BID #180 tabs 07/29/22 03/08/23 Rx ondansetron HCl 4 mg tablet 4 mg PO DAILY PRN nausea and 08/06/22 03/08/23 Rx vomiting #30 tabs metformin 500 mg tablet,extended 1,000 mg PO BID #360 tabs 11/26/22 03/08/23 Rx release 24 hr levalbuterol tartrate 45 2 inh inhalation Q6H PRN Shortness 12/15/22 03/08/23 Rx mcg/actuation aerosol inhaler Of Breath #15 grams (Xopenex HFA) atorvastatin 40 mg tablet 40 mg PO HS #90 tabs 02/05/23 03/08/23 Rx blood sugar diagnostic (OneTouch #100 ea 03/03/23 03/08/23 Rx Verio test strips) lancets #100 ea 03/03/23 03/08/23 Rx dicyclomine 10 mg capsule 10 mg PO TID PRN Abdominal 03/05/23 03/08/23 History Discomfort acetaminophen 500 mg tablet 500 mg PO Q6H PRN fever #20 tabs 03/08/23 03/08/23 Rx (Tylenol Extra Strength) Past Med/Surg History Medical History Abdominal pain Abdominal pain, LLQ Anxiety Asthma RARE INH USE Bipolar disorder CAD S/P percutaneous coronary angioplasty Cervical radiculopathy Depression Diabetes Fall History of Holter monitoring YRS AGO HTN (hypertension) Hyperlipemia IBS (irritable bowel syndrome) Insomnia Lichen sclerosus et atrophicus Mixed conductive and sensorineural hearing loss of right ear with restricted hearing of left ear Pain of right orbit Photophobia of right eye Premature ventricular contractions FOLLOWS ZYSMANSKY Reflex sympathetic dystrophy Renal insufficiency Renal stones CYSTO AND SOME PASSED ON OWN Sensorineural hearing loss (SNHL) of right ear with restricted hearing of left ear Tinnitus of right ear Traumatic black eye of right side UTI (urinary tract infection) Vitamin B12 deficiency Vitamin D deficiency Surgical History H/O decompression of ulnar nerve RIGHT 2018 H/O ovarian cystectomy H/O repair of rotator cuff LEFT WITH PARTIAL COLLAR BONE REMOVAL H/O: section X2 History of ankle surgery RIGHT> NO HARDWARE History of appendectomy History of cardiac cath X2> NO STENTS LAST 1996 History of carpal tunnel repair BILAT History of cataract removal with insertion of prosthetic lens BILAT History of colonoscopy History of cystoscopy History of laminectomy L4-6 History of neck surgery LAPAROTOMY C5-7> ROM IS GOOD History of ovarian cystectomy History of tonsillectomy History of tooth extraction X3 Hx of CABG AUG 1997 > 2 VESSEL> TORY Family History Father Nephrolithiasis Renal cyst Kidney disease Hypertension History of nephrectomy Prostate cancer Cataract Arthritis Gout ESRD (end stage renal disease) Grandmother Hypertension Stroke syndrome Grandfather Hypertension Prostate cancer Mother Type 2 diabetes mellitus Pancreatitis Hypertension Macular degeneration Cataract Malignant melanoma of skin Vascular dementia Transient ischemic attack Grandfather Lung cancer Grandmother Type 2 diabetes mellitus Obesity Brother Prostate cancer Hypertension Type 2 diabetes mellitus Nephrolithiasis Rosacea Chronic sinusitis Hyperlipidemia Arthritis Liver cancer Unknown Dysplastic nevus Sister Hyperlipidemia Daughter Gestational diabetes Son Asthma Other No family history of adverse response to anesthesia No family history of bleeding disorder Denies family history of Colon cancer Ovarian cancer Myocardial infarction Breast cancer Social History Smoking Status: Never smoker Second Hand Exposure: No; Do You Dip or Chew Tobacco: No; Hx Alcohol Use: No Hx Substance Use: No Preferred Language: Trinidadian Communication Ability: Effective Visual Impairment: No Limitations Hearing Ability: Normal Behavioral Sciences Department Chair Required: No Beliefs That Will Affect Care: Baptist marital status: Single Current Living Situation: Alone current occupational status: retired current occupation: administrative technician at [employer] Feels Safe at Home: Yes Childhood Exposure to Second-Hand Smoke: No Diet: regular Dental Care, Regularly: Yes Physical Activity Frequency: Does not Exercise Seatbelt Use: always Sunscreen Use: Yes (sometime for sunscreen but always where a sunhat) Assistive Devices: Glasses and Hearing Aid - Bilateral Review of Systems Review of Systems: The patient denies chest pain, palpitations, shortness of breath, dyspnea on exertion, cough, lower extremity swelling, sore throat, fevers, chills, sweats, vomiting, blood in urine or stool, dysuria, urinary frequency or urgency, memory loss, loss of consciousness, rash, abnormal bruising or bleeding, focal weakness, numbness or tingling in arms or legs, generalized arthralgias or myalgias, back or neck pain, or night sweats. The review of systems is otherwise negative other than for that already noted above, and at least 10 systems have been reviewed. Physical Exam Physical Exam: The patient is awake, alert and oriented 3, well developed and well nourished, normocephalic and atraumatic, lying in bed and in no acute distress. HEENT--PERRL, EOMI, mucous membranes and oropharynx dry. Neck--supple. No JVD. No bruits. Thyroid normal, trachea midline, no adenopathy. Heart--normal S1 and S2. No murmurs, rubs or gallops. Lungs--clear bilaterally, no respiratory distress, no accessory muscle use. Abdomen--normal bowel sounds and soft. Mild left lower quadrant tenderness. Nondistended, no hernias or masses, no organomegaly. Extremities--no cyanosis or clubbing. No edema. There are good distal pulses b/l. Dermatologic--normal skin turgor, normal color, no abnormal lymph nodes, no rash. Neurologic--cranial nerves II through XII grossly intact. Rheumatologic--normal range of motion. Psychiatric--normal affect. Results & Data Results & Data Vital Signs (Past 12 Hours) Vital Signs Temp Pulse Resp BP Pulse Ox O2 Del Method O2 Flow Rate 03/13/23 04:30 82 17 100 03/13/23 04:30 147/92 H 03/13/23 04:00 80 10 L 90 03/13/23 04:00 143/78 H 03/13/23 03:30 84 15 90 03/13/23 03:30 143/58 H 03/13/23 03:00 86 13 03/13/23 03:00 138/90 03/13/23 02:46 86 18 94 03/13/23 04:05 Nasal Cannula 2 03/13/23 03:51 93 Nasal Cannula 5 03/13/23 03:50 85 L Room Air 03/13/23 02:47 36.7 C 87 16 94 Room Air Laboratory Results Laboratory Results WBC 8.52 K/ul (4.8-10.8) 03/13/23 02:45 RBC 4.28 M/uL (4.20-5.40) 03/13/23 02:45 Hgb 11.8 g/dl (12.0-16.0) L 03/13/23 02:45 Hct 36.4 % (37.0-47.0) L 03/13/23 02:45 MCV 85.0 fL (80.0-100.0) 03/13/23 02:45 MCH 27.6 pg (25.0-34.0) 03/13/23 02:45 MCHC 32.4 g/dL (32.0-36.0) 03/13/23 02:45 RDW Std Deviation 41.5 fL (36.4-46.3) 03/13/23 02:45 RDW Coeff of Maribel 13.6 % (11.5-14.5) 03/13/23 02:45 Plt Count 366 K/uL (130-400) 03/13/23 02:45 MPV 9.6 fL (9.4-12.4) 03/13/23 02:45 Immature Gran % (Auto) 0.5 % 03/13/23 02:45 Neut % (Auto) 65.6 % 03/13/23 02:45 Lymph % (Auto) 25.0 % 03/13/23 02:45 [place] % (Auto) 6.7 % 03/13/23 02:45 Eos % (Auto) 1.6 % 03/13/23 02:45 Baso % (Auto) 0.6 % 03/13/23 02:45 Neut # (Auto) 5.59 K/uL (1.40-6.50) 03/13/23 02:45 Lymph # (Auto) 2.13 K/uL (1.2-3.4) 03/13/23 02:45 [place] # (Auto) 0.57 K/uL (0.11-0.59) 03/13/23 02:45 Eos # (Auto) 0.14 K/uL (0-0.50) 03/13/23 02:45 Baso # (Auto) 0.05 K/uL (0-0.2) 03/13/23 02:45 Immature Gran # (Auto) 0.04 K/uL (0.01-0.20) 03/13/23 02:45 Sodium 130 mmol/L (136-145) L 03/13/23 02:45 Potassium 3.3 mmol/L (3.5-5.1) L 03/13/23 02:45 Chloride 91 mmol/L (98-107) L 03/13/23 02:45 Carbon Dioxide 21 mmol/L (21-32) 03/13/23 02:45 Anion Gap 18 (3-11) H 03/13/23 02:45 BUN 9 mg/dl (6-23) 03/13/23 02:45 Creatinine 1.58 mg/dl (0.6-1.2) H 03/13/23 02:45 Est Cr Clr Drug Dosing 30.7 ml/min 03/13/23 02:45 Est GFR ( Amer) 37.2 ml/min 03/13/23 02:45 Est GFR (Non-Af Amer) 32.1 ml/min 03/13/23 02:45 BUN/Creatinine Ratio 5.7 (10-20) L 03/13/23 02:45 Glucose 153 mg/dl (70-99(Fasting)) H 03/13/23 02:45 Calcium 9.3 mg/dl (8.6-10.3) 03/13/23 02:45 Magnesium 1.1 mg/dl (1.7-2.4) L 03/13/23 02:45 Total Bilirubin 0.5 mg/dl (0.2-1.0) 03/13/23 02:45 AST 22 U/L (13-39) 03/13/23 02:45 ALT 20 U/L (7-52) 03/13/23 02:45 Alkaline Phosphatase 83 U/L (34-104) 03/13/23 02:45 Troponin I High Sens 9.5 pg/ml (0-14) 03/13/23 02:45 Total Protein 6.7 gm/dl (6.0-8.3) 03/13/23 02:45 Albumin 4.3 gm/dl (3.4-5.0) 03/13/23 02:45 Globulin 2.4 gm/dl (2.5-4.0) L 03/13/23 02:45 Albumin/Globulin Ratio 1.8 (0.9-2) 03/13/23 02:45 Lipase 38 U/L (11-82) 03/13/23 02:45 SARS-CoV-2, RNA, NAAT NEGATIVE (NEGATIVE) 03/13/23 04:34 Code Status & VTE Plan Code Status Full code VTE Prophylaxis Plan VTE Prophylaxis will be ordered: Yes PG Care Time/CCT Total # of Minutes Spent Total Time Spent with Patient: Total time spent is greater than 50% in coordination of care (as documented) at patient's floor/unit and/or counseling patient: Coding Level of Care Code 96806 INT INP/OBS CARE 3/75MIN Diagnoses Vertebro basilar insufficiency G45.0 Disequilibrium R42 CAD S/P percutaneous coronary angioplasty I25.10; Z98.61 HTN (hypertension) I10 Hyperlipemia E78.5 Diverticulitis K57.92 Generalized weakness R53.1 Abdominal pain, LLQ R10.32 Hyponatremia E87.1 Hypomagnesemia E83.42 Hypokalemia E87.6 Diarrhea R19.7 Bipolar 1 disorder, manic, mild F31.11 Depression F32.9 GERD (gastroesophageal reflux disease) K21.9 Diabetes E11.9
--- NOTE | 2023-03-13 05:57 | Emergency Department Note ---
ED Visit Note I was consulted by the Advanced Practice Provider. I saw the patient personally and performed a substantive portion of the visit. This includes aspects of the HPI, MDM, diagnostic interpretations, and disposition/plan. .
--- NOTE | 2023-03-13 06:05 | Emergency Department Note ---
History of Present Illness General Chief complaint: Abdominal Pain Stated complaint: NAUSEA/VOMITING/DIARRHEA Time Seen by Provider: 03/13/23 02:41 History of Present Illness Maximum Pain Intensity: 5 This is a 72-year-old female presenting to the emergency department via EMS from home for evaluation of nausea, vomiting, and diarrhea. The patient was admitted to this facility earlier this week for diverticulitis. She had been on Augmentin prior to the hospitalization and was transitioned to IV Zosyn. She was discharged on Cipro and Flagyl which she completed yesterday. The patient did feel better after discharge, and feels like she was essentially back to normal on Wednesday, 2 days ago. She started feeling much worse today and feels dizzy and lightheaded. She is not able to keep down fluids and feels dehydrated. She is having watery and intermittent diarrhea. No distinct fever or chills. Her abdominal pain seems to have improved, where initially it was left-sided lower with the diverticulitis, but this is very minimal. The patient rates her current discomfort a 5/10. No head pain, neck pain, chest pain, chest tightness, shortness of breath. Home Medications Medication Instructions Recorded Confirmed Type aspirin 81 mg tablet,delayed 81 mg PO QAM 12/25/18 03/08/23 History release (Celestino Low Dose Aspirin) cyanocobalamin (vitamin B-12) 1,000 mcg IM MONTHLY 03/13/19 03/08/23 History 1,000 mcg/mL injection solution lamotrigine 100 mg tablet 200 mg PO QAM 03/13/19 03/08/23 History trazodone 100 mg tablet 100 mg PO DAILY 03/21/21 03/08/23 History tramadol 50 mg tablet 50 mg PO DAILY PRN pain #10 tabs 04/08/21 03/08/23 Rx valsartan 80 mg tablet 80 mg PO PM #90 tabs 04/08/22 03/08/23 Rx gabapentin 100 mg capsule 100 mg PO BID #180 caps 07/29/22 03/08/23 Rx gabapentin 600 mg tablet 600 mg PO BID #180 tabs 07/29/22 03/08/23 Rx ondansetron HCl 4 mg tablet 4 mg PO DAILY PRN nausea and 08/06/22 03/08/23 Rx vomiting #30 tabs metformin 500 mg tablet,extended 1,000 mg PO BID #360 tabs 11/26/22 03/08/23 Rx release 24 hr levalbuterol tartrate 45 2 inh inhalation Q6H PRN Shortness 12/15/22 03/08/23 Rx mcg/actuation aerosol inhaler Of Breath #15 grams (Xopenex HFA) atorvastatin 40 mg tablet 40 mg PO HS #90 tabs 02/05/23 03/08/23 Rx blood sugar diagnostic (OneTouch #100 ea 03/03/23 03/08/23 Rx Verio test strips) lancets #100 ea 03/03/23 03/08/23 Rx dicyclomine 10 mg capsule 10 mg PO TID PRN Abdominal 03/05/23 03/08/23 History Discomfort acetaminophen 500 mg tablet 500 mg PO Q6H PRN fever #20 tabs 03/08/23 03/08/23 Rx (Tylenol Extra Strength) Allergies Allergy/AdvReac Type Severity Reaction Status Date / Time lurasidone Allergy Intermediate TARDIVE Verified 03/03/23 12:33 DYSKINESIA Phenothiazines Allergy Intermediate "EYES ROLL Verified 03/03/23 12:33 UP" lactose Allergy Mild Verified 03/03/23 12:33 aspartame Allergy Verified 03/06/23 09:02 sucralose Allergy Verified 03/06/23 09:02 bupropion AdvReac Unknown SEIZURE IN Verified 03/03/23 12:33 PAST lithium AdvReac Unknown VOMITING Verified 03/03/23 12:33 AND DIARRHEA ARTIFICIAL SWEETNERS Allergy Unknown DIARRHEA Uncoded 03/03/23 12:33 Past Med/Surg History Medical History Abdominal pain Abdominal pain, LLQ Anxiety Asthma RARE INH USE Bipolar disorder CAD S/P percutaneous coronary angioplasty Cervical radiculopathy Depression Diabetes Fall History of Holter monitoring YRS AGO HTN (hypertension) Hyperlipemia IBS (irritable bowel syndrome) Insomnia Lichen sclerosus et atrophicus Mixed conductive and sensorineural hearing loss of right ear with restricted hearing of left ear Pain of right orbit Photophobia of right eye Premature ventricular contractions FOLLOWS ZYSMANSKY Reflex sympathetic dystrophy Renal insufficiency Renal stones CYSTO AND SOME PASSED ON OWN Sensorineural hearing loss (SNHL) of right ear with restricted hearing of left ear Tinnitus of right ear Traumatic black eye of right side UTI (urinary tract infection) Vitamin B12 deficiency Vitamin D deficiency Surgical History H/O decompression of ulnar nerve RIGHT 2018 H/O ovarian cystectomy H/O repair of rotator cuff LEFT WITH PARTIAL COLLAR BONE REMOVAL H/O: section X2 History of ankle surgery RIGHT> NO HARDWARE History of appendectomy History of cardiac cath X2> NO STENTS LAST 1996 History of carpal tunnel repair BILAT History of cataract removal with insertion of prosthetic lens BILAT History of colonoscopy History of cystoscopy History of laminectomy L4-6 History of neck surgery LAPAROTOMY C5-7> ROM IS GOOD History of ovarian cystectomy History of tonsillectomy History of tooth extraction X3 Hx of CABG AUG 1997 > 2 VESSEL> TORY Family History Father Nephrolithiasis Renal cyst Kidney disease Hypertension History of nephrectomy Prostate cancer Cataract Arthritis Gout ESRD (end stage renal disease) Grandmother Hypertension Stroke syndrome Grandfather Hypertension Prostate cancer Mother Type 2 diabetes mellitus Pancreatitis Hypertension Macular degeneration Cataract Malignant melanoma of skin Vascular dementia Transient ischemic attack Grandfather Lung cancer Grandmother Type 2 diabetes mellitus Obesity Brother Prostate cancer Hypertension Type 2 diabetes mellitus Nephrolithiasis Rosacea Chronic sinusitis Hyperlipidemia Arthritis Liver cancer Unknown Dysplastic nevus Sister Hyperlipidemia Daughter Gestational diabetes Son Asthma Other No family history of adverse response to anesthesia No family history of bleeding disorder Denies family history of Colon cancer Ovarian cancer Myocardial infarction Breast cancer Social History Smoking Status: Never smoker Second Hand Exposure: No; Do You Dip or Chew Tobacco: No; Hx Alcohol Use: No Hx Substance Use: No Preferred Language: Thai Communication Ability: Effective Visual Impairment: No Limitations Hearing Ability: Normal Manager Transport Required: No Beliefs That Will Affect Care: Christianity marital status: Single Current Living Situation: Alone current occupational status: retired current occupation: administrative services manager at [employer] Feels Safe at Home: Yes Childhood Exposure to Second-Hand Smoke: No Diet: regular Dental Care, Regularly: Yes Physical Activity Frequency: Does not Exercise Seatbelt Use: always Sunscreen Use: Yes (sometime for sunscreen but always where a sunhat) Assistive Devices: Glasses and Hearing Aid - Bilateral Review of Systems A total of 10 systems reviewed and were otherwise negative Physical Exam Vital Signs Vital Signs - 24 hr 03/13/23 02:47 03/13/23 02:47 03/13/23 03:50 Temperature 36.7 C Temperature Source Oral Pulse Rate 87 Pulse Rate from SpO2 Sensor Respiratory Rate 16 Respiratory Effort / Characteristics Non-Labored Non-Labored Respiratory Depth Normal Normal Blood Pressure Blood Pressure Mean Pulse Oximetry 94 85 L Oxygen Delivery Method Room Air Room Air Oxygen Flow Rate Sepsis Recent Fever Within 48 Hours No Sepsis New/Unexplained Change in Mental Status No Sepsis Action Taken by Nursing No Action Required 03/13/23 03:51 03/13/23 04:05 03/13/23 02:46 Temperature Temperature Source Pulse Rate 86 Pulse Rate from SpO2 Sensor 87 Respiratory Rate 18 Respiratory Effort / Characteristics Respiratory Depth Blood Pressure Blood Pressure Mean Pulse Oximetry 93 94 Oxygen Delivery Method Nasal Cannula Nasal Cannula Oxygen Flow Rate 5 2 Sepsis Recent Fever Within 48 Hours Sepsis New/Unexplained Change in Mental Status Sepsis Action Taken by Nursing 03/13/23 03:00 03/13/23 03:00 03/13/23 03:30 Temperature Temperature Source Pulse Rate 86 Pulse Rate from SpO2 Sensor 86 Respiratory Rate 13 Respiratory Effort / Characteristics Respiratory Depth Blood Pressure 138/90 143/58 H Blood Pressure Mean 106 86 Pulse Oximetry Oxygen Delivery Method Oxygen Flow Rate Sepsis Recent Fever Within 48 Hours Sepsis New/Unexplained Change in Mental Status Sepsis Action Taken by Nursing 03/13/23 03:30 03/13/23 04:00 03/13/23 04:00 Temperature Temperature Source Pulse Rate 84 80 Pulse Rate from SpO2 Sensor 83 81 Respiratory Rate 15 10 L Respiratory Effort / Characteristics Respiratory Depth Blood Pressure 143/78 H Blood Pressure Mean 99 Pulse Oximetry 90 90 Oxygen Delivery Method Oxygen Flow Rate Sepsis Recent Fever Within 48 Hours Sepsis New/Unexplained Change in Mental Status Sepsis Action Taken by Nursing 03/13/23 04:30 03/13/23 04:30 03/13/23 02:50 Temperature Temperature Source Pulse Rate 82 89 Pulse Rate from SpO2 Sensor 82 Respiratory Rate 17 Respiratory Effort / Characteristics Respiratory Depth Blood Pressure 147/92 H Blood Pressure Mean 110 Pulse Oximetry 100 Oxygen Delivery Method Oxygen Flow Rate Sepsis Recent Fever Within 48 Hours Sepsis New/Unexplained Change in Mental Status Sepsis Action Taken by Nursing 03/13/23 02:51 Temperature Temperature Source Pulse Rate Pulse Rate from SpO2 Sensor Respiratory Rate Respiratory Effort / Characteristics Respiratory Depth Blood Pressure Blood Pressure Mean Pulse Oximetry 90 Oxygen Delivery Method Room Air Oxygen Flow Rate Sepsis Recent Fever Within 48 Hours Sepsis New/Unexplained Change in Mental Status Sepsis Action Taken by Nursing VITALS: Vitals are noted on the nurse's note and reviewed by myself. Vital signs stable. GENERAL: Well-developed, well-nourished, elderly white female, who is in no acu te distress and resting comfortably. Patient is cooperative with the examination. HEAD: Normocephalic atraumatic. NECK: Supple without nuchal rigidity. No lymphadenopathy. No thyromegaly. Cervical spine is nontender. HEART: Regular rate and rhythm without murmurs gallops or rubs. LUNGS: Clear to auscultation bilaterally without wheezes, rales or rhonchi. No retractions or accessory muscle use. ABDOMEN: Positive normal bowel sounds x 4. Soft, with very mild left lower tenderness. No rebound or guarding. MUSCULOSKELETAL: No muscle atrophy, erythema, or edema noted. Full range of motion in all extremities. Course Administered Medications Discontinued Medications Sodium Chloride (Nss 1000ml) 1,000 mls @ 999 mls/hr IV .Q1H1M CALEB Stop: 03/13/23 04:00 Last Admin: 03/13/23 03:30 Dose: 999 mls/hr Documented By: LIYA Magnesium Sulfate/Dextrose (Magnesium Sulfate / D5w) 1 gm in 100 mls @ 100 mls/hr IV NOW STA Stop: 03/13/23 04:42 Last Admin: 03/13/23 04:25 Dose: 100 mls/hr Documented By: LIYA Potassium Chloride (K Tom / Wtr) 10 meq in 100 mls @ 100 mls/hr IV ONE ONE Stop: 03/13/23 04:41 Last Admin: 03/13/23 05:34 Dose: 100 mls/hr Documented By: LIYA Ondansetron HCl (Ondansetron Inj 2 Mg/Ml 2 Ml Vial) 4 mg IV NOW STA Stop: 03/13/23 03:20 Last Admin: 03/13/23 03:31 Dose: 4 mg Documented By: LIYA Medical Decision Making Differential Diagnosis Differential diagnosis: Etiologies such as biliary colic, cholecystitis, hepatitis, pancreatitis, cardiac disease, pancreatitis, gastritis, peptic ulcer disease, appendicitis, cystitis, diverticulitis, mesenteric ischemia, inflammatory bowel disease, ileus, bowel obstruction, testicular/adnexal torsion, aortic pathology, shingles, as well as others were considered Laboratory Data 03/13/23 02:45 03/13/23 02:45 Lab Results 03/13/23 03/13/23 03/13/23 Range/Units 02:45 02:45 04:34 WBC 8.52 (4.8-10.8) K/ul RBC 4.28 (4.20-5.40) M/uL Hgb 11.8 L (12.0-16.0) g/dl Hct 36.4 L (37.0-47.0) % MCV 85.0 (80.0-100.0) fL MCH 27.6 (25.0-34.0) pg MCHC 32.4 (32.0-36.0) g/dL RDW Std Deviation 41.5 (36.4-46.3) fL RDW Coeff of Maribel 13.6 (11.5-14.5) % Plt Count 366 (130-400) K/uL MPV 9.6 (9.4-12.4) fL Immature Gran % (Auto) 0.5 % Neut % (Auto) 65.6 % Lymph % (Auto) 25.0 % [place] % (Auto) 6.7 % Eos % (Auto) 1.6 % Baso % (Auto) 0.6 % Neut # (Auto) 5.59 (1.40-6.50) K/uL Lymph # (Auto) 2.13 (1.2-3.4) K/uL [place] # (Auto) 0.57 (0.11-0.59) K/uL Eos # (Auto) 0.14 (0-0.50) K/uL Baso # (Auto) 0.05 (0-0.2) K/uL Immature Gran # (Auto) 0.04 (0.01-0.20) K/uL Sodium 130 L (136-145) mmol/L Potassium 3.3 L (3.5-5.1) mmol/L Chloride 91 L (98-107) mmol/L Carbon Dioxide 21 (21-32) mmol/L Anion Gap 18 H (3-11) BUN 9 (6-23) mg/dl Creatinine 1.58 H (0.6-1.2) mg/dl Est Cr Clr Drug Dosing 30.7 ml/min Est GFR ( Amer) 37.2 ml/min Est GFR (Non-Af Amer) 32.1 ml/min BUN/Creatinine Ratio 5.7 L (10-20) Glucose 153 H (70-99(Fasting)) mg/dl Calcium 9.3 (8.6-10.3) mg/dl Magnesium 1.1 L (1.7-2.4) mg/dl Total Bilirubin 0.5 (0.2-1.0) mg/dl AST 22 (13-39) U/L ALT 20 (7-52) U/L Alkaline Phosphatase 83 (34-104) U/L Troponin I High Sens 9.5 (0-14) pg/ml Total Protein 6.7 (6.0-8.3) gm/dl Albumin 4.3 (3.4-5.0) gm/dl Globulin 2.4 L (2.5-4.0) gm/dl Albumin/Globulin Ratio 1.8 (0.9-2) Lipase 38 (11-82) U/L SARS-CoV-2, RNA, NAAT NEGATIVE (NEGATIVE) ECG Data Additional Comments: Normal sinus rhythm @[address] elevation When compared with ECG of 05-MAR-2023 16:32, Questionable change in initial forces of Anterior leads ST no longer depressed in Inferior leads MDM Narrative Physical exam and history were performed. Nursing notes, EMR, and Medication Lis t were personally reviewed. No social concerns were identified as barriers to patients care. Patient appears to have nausea, vomiting, and diarrhea worsening over the past day. Recent medical history is complicated as she was admitted for diverticulitis. She does have some very mild persistent left lower quadrant discomfort, but declines CT imaging. IV access was established and labs were ob tained. She was hydrated and medicated as above. An order was placed for continuous cardiac monitoring. The monitor shows a rate of 82 with normal sinus rhythm. Patient's blood work is as above and was reviewed. She does not have a significantly elevated white blood cell count, gross anemia significant bandemia. Creatinine is 1.58. Glucose is 153. Magnesium is low at 1.1. Potassium is also slightly low at 3.3. These were both repleted through her IV. COVID was performed and negative. Case was discussed with my attending, who also independently evaluated the patient. Overall the patient does not seem well for discharge home. She is with generalized weakness, nausea, and vomiting. She is with low magnesium and potassium. Patient was discussed with the on-call hospitalist team who agreed to evaluate the patient here in the ER. Please see their dictation for further patient course, plan, disposition. The chart was completed utilizing [employer] Speech Voice Recognition Software. Grammatical errors, random word insertions, pronoun errors, and incomplete sentences are an occasional consequence of this system due to software limitations, ambient noise, and hardware issues. Any formal questions or concerns about the content, text, or information contained within the body of this dictation should be directly addressed to the provider for clarification. . Impression & Plan Hypomagnesemia, Generalized weakness, Hypokalemia, Nausea and vomiting Discharge Plan Visit Data Chief Complaint: Abdominal Pain Stated Complaint: NAUSEA/VOMITING/DIARRHEA ED Provider: Gardenia Fajardo ED Midlevel Provider: Keon Chowdhury Discharge Problem: Hypomagnesemia, Generalized weakness, Hypokalemia, Nausea and vomiting Forms Stand Alone Forms: [facility] [employer] Prescriptions Prescriptions: No Action valsartan 80 mg tablet 80 mg PO PM Qty: 90 3RF gabapentin 100 mg capsule 100 mg PO BID Qty: 180 3RF Rx Instructions: Take 100mg BID in addition to her 600mg BID gabapentin 600 mg tablet 600 mg PO BID Qty: 180 3RF ondansetron HCl 4 mg tablet 4 mg PO DAILY PRN (Reason: nausea and vomiting) Qty: 30 1RF metformin 500 mg tablet extended release 24 hr 1,000 mg PO BID Qty: 360 3RF atorvastatin 40 mg tablet 40 mg PO HS Qty: 90 3RF lamotrigine 100 mg tablet 200 mg PO QAM cyanocobalamin (vitamin B-12) 1,000 mcg/mL solution 1,000 mcg IM MONTHLY levalbuterol tartrate [Xopenex HFA] 45 mcg/actuation HFA aerosol inhaler 2 inh INH Q6H PRN (Reason: Shortness Of Breath) Qty: 15 3RF (DME) lancets Misc See Rx Instructions .ROUTE .MEDSUPPLY Qty: 100 3RF Rx Instructions: TEST ONCE DAILY (DME) OneTouch Verio test strips Strip See Rx Instructions .ROUTE .MEDSUPPLY Qty: 100 3RF Rx Instructions: TEST THREE TIMES DAILY E11.9 acetaminophen [Tylenol Extra Strength] 500 mg tablet 500 mg PO Q6H PRN (Reason: fever) Qty: 20 0RF Rx Instructions: 500mg-1000mg trazodone 100 mg tablet 100 mg PO DAILY tramadol 50 mg tablet 50 mg PO DAILY PRN (Reason: pain) Qty: 10 0RF aspirin [Celestino Low Dose Aspirin] 81 mg Tablet,Delayed Release (Dr/Ec) 81 mg PO QAM dicyclomine 10 mg capsule 10 mg PO TID PRN (Reason: Abdominal Discomfort) Rx Instructions: TAKE 1 CAPSULE BY MOUTH THREE TIMES A DAY NEEDED FOR ABDOMINAL DISCOMFORT Referrals Referrals: Ej Schroeder MD [Primary Care Provider] -
[2023-03-13] MEDS ORDERED: GLUCOSE 40% GEL 15 GM TUBE PO PRN (06:36)
[2023-03-13] MEDS ORDERED: ACETAMINOPHEN 325 MG TAB PO PRN (06:36)
[2023-03-13] MEDS ORDERED: GLUCOSE 10 TAB/TUBE PO PRN (06:36)
[2023-03-13] MEDS ORDERED: LEVALBUTEROL TARTRATE 15 GM HFA.AER.AD INH PRN (06:36)
[2023-03-13] MEDS ORDERED: GLUCAGON FOR INJ 1 MG VIAL SQ PRN (06:36)
[2023-03-13] MEDS ORDERED: DEXTROSE 50% 50 ML SYRINGE IV PRN (06:36)
[2023-03-13] MEDS ORDERED: CARBOHYDRATES FOR HYPOGLYCEMIA PO PRN (06:36)
[2023-03-13] MEDS ORDERED: traMADol HCL 50 MG TABLET PO PRN (06:36)
[2023-03-13] MEDS ORDERED: NSS + 20MEQ KCL 20 MEQ/1,000 ML BAG IV SCH (07:00)
[2023-03-13] MEDS: MAGNESIUM SULFATE / D5W 1 GM/100 ML BAG IV SCH ×2 (07:34→09:37)
[2023-03-13] MEDS: GABAPENTIN 600 MG TAB PO SCH ×2 (08:16→20:21)
[2023-03-13] MEDS: lamoTRIgine 100 MG TAB PO SCH (08:16)
[2023-03-13] MEDS: DICYCLOMINE HCL 10 MG CAP PO PRN (08:16)
[2023-03-13] MEDS: GABAPENTIN 100 MG CAP PO SCH ×2 (08:16→20:21)
[2023-03-13] MEDS: HEPARIN SOD 5,000 UNIT/0.5 ML VIAL SQ SCH ×2 (08:17→20:22)
--- NOTE | 2023-03-13 08:40 | Hospitalist Progress Note ---
Date of Service March 13, 2023 Assessment & Plan (1) Diverticulitis: Plan: Diverticulitis/GERD/diarrhea- Patient was admitted from 03/05-03/07/2023. Discharged on Cipro Flagyl was previously on Zosyn therapy with concerned that oral antibiotics may be causing GI upset we will complete course with Augmentin for 10-day treatment to the last dose on 03/[address] scans of abdomen pelvis performed on 03/03 and 03/05, and asked that no additional CTs be performed this admission Patient does continue have some mild left lower quadrant tenderness, but improved She has not been able to eat anything significantly since she was discharged on 03/07, however the patient feels like she wants to advance her diet currently Pantoprazole 40 mg IV daily NSS + KCl 20 mEq at 60 mils per hour x1 L Zofran 4 mg IV every 6 hours as needed for nausea or vomiting (2) Hypokalemia: Plan: Electrolyte disturbances/acute kidney injury on CKD-3, acute hypokalemia hyponatremia and hypomagnesemia Creatinine 1.58 on admission, with base 1.21 Magnesium is 1.1, potassium 3.3, and sodium 130 She is status post 1 L normal saline in ED Given magnesium sulfate 1 g IV in the ED, will give 2 additional grams for total of 3 Given 1K rider 10 mEq in the ED, she did report some burning, and it will be slowed down to as low as possible right We will give NSS + KCl 20 mEq at 60 mils per hour x1 L for remainder of correction (3) Diabetes: Plan: Diabetes mellitus- Would hold metformin until patient is completely back to normal from her diverticulitis Placed on Accu-Cheks with NovoLog SSI (4) Depression: Plan: Bipolar disorder type I, manic, mild/depression- Continue usual medications, gabapentin, lamotrigine, trazodone (5) HTN (hypertension): Plan: Typically takes valsartan 80 mg a day Plan Generalized weakness- Patient should have the PT/OT assessment prior to discharge Admission and Anticipated Discharge Date Admission Date: March 13, 2023 Subjective Patient's GI distress is improved she still has left lower quad abdominal pain but much less than previous she is requesting advancement to regular diet Physical Exam Physical Exam: Patient awake alert appropriate cardiac exam is regular lungs are clear Abdomen is NABS she has tenderness in left lower quadrant with some mild quality rebound to it however this is not an acute abdomen with no rigidity Results & Data Results & Data Vital Signs (Past 12 Hours) Vital Signs Temp Pulse Pulse Resp BP BP Pulse Ox 03/13/23 07:47 97.9 F 80 18 132/66 97 03/13/23 06:37 14 168/115 H 98 03/13/23 05:35 87 18 98 03/13/23 05:00 81 12 165/70 H 100 03/13/23 02:51 90 03/13/23 02:50 89 03/13/23 04:30 82 17 100 03/13/23 04:30 147/92 H 03/13/23 04:00 80 10 L 90 03/13/23 04:00 143/78 H 03/13/23 03:30 84 15 90 03/13/23 03:30 143/58 H 03/13/23 03:00 86 13 03/13/23 03:00 138/90 03/13/23 02:46 86 18 94 03/13/23 04:05 03/13/23 03:51 93 03/13/23 03:50 85 L 03/13/23 02:47 98.1 F 87 16 94 O2 Del Method O2 Flow Rate 03/13/23 07:47 Room Air 03/13/23 06:37 Room Air 03/13/23 05:35 03/13/23 05:00 03/13/23 02:51 Room Air 03/13/23 02:50 03/13/23 04:30 03/13/23 04:30 03/13/23 04:00 03/13/23 04:00 03/13/23 03:30 03/13/23 03:30 03/13/23 03:00 03/13/23 03:00 03/13/23 02:46 03/13/23 04:05 Nasal Cannula 2 03/13/23 03:51 Nasal Cannula 5 03/13/23 03:50 Room Air 03/13/23 02:47 Room Air Laboratory Results Reviewed admission laboratories including repeat chemistry labs at 7 AM showing hypomagnesemia and hypokalemia PG Care Time/CCT Total # of Minutes Spent Total Time Spent with Patient: Total time spent is greater than 50% in coordination of care (as documented) at patient's floor/unit and/or counseling patient: Coding Level of Care Code None Diagnoses Diverticulitis K57.92 Hypokalemia E87.6 Diabetes E11.9 Depression F32.9 HTN (hypertension) I10
[2023-03-13] MEDS ORDERED: traZODone HCL 100 MG TAB PO SCH ×2 (09:00→21:00)
[2023-03-13] MEDS: INSULIN ASPART PER UNIT CHARGE SC SCH ×4 (09:20→20:13)
[2023-03-13] MEDS ORDERED: PNEUMOCOCCAL Polysaccharide Vaccine 25mcg/0.5mL vial/Syr IM ONE (09:30)
[2023-03-13] MEDS ORDERED: PANTOprazole 40 MG in SYRINGE 0 ML IV SCH (11:00)
[2023-03-13] MEDS ORDERED: MAGNESIUM SULFATE / D5W 1 GM/100 ML BAG IV ONE (15:28)
[2023-03-13] MEDS: AMOXICILLIN/CLAVULANATE 875 MG TAB PO SCH (16:25)
--- NOTE | 2023-03-13 17:45 | Electrocardiogram Report ---
Test Reason : Blood Pressure : / mmHG Vent. Rate : 085 BPM Atrial Rate : 085 BPM P-R Int : 172 ms QRS Dur : 094 ms QT Int : 380 ms P-R-T Axes : 080 038 043 degrees QTc Int : 452 ms Normal sinus rhythm Possible Left atrial enlargement Anteroseptal infarct (cited on or before 24-NOV-1998) Abnormal ECG When compared with ECG of 05-MAR-2023 16:32, Questionable change in initial forces of Anterior leads Confirmed by Lokesh Grajeda ([id number]) on 03/13/2023 5:45:36 PM Referred By: REFERRED SELF Confirmed By:Lokesh Grajeda
[2023-03-13 19:39] LABS: Appearance Urine Clear (Clear); Bilirubin Urine Negative (Negative); Blood Urine Negative (Negative); Color Urine Yellow; Glucose Urine UA Negative (Negative); Ketones Urine Negative (Negative); Leukocyte Esterase Urine Negative (Negative); Nitrite Urine Negative (Negative); Protein Urine Negative (Negative); Specific Gravity Urine 1.008 (1.000-1.030); Urobilinogen Urine Negative (Negative)
[2023-03-13] MEDS ORDERED: Nursing to Pharmacy Communication SCH (20:45)
[2023-03-14 06:39] LABS: Basophils # (auto) 0.03 K/uL (0-0.2); Basophils % (auto) 0.6 %; Eosinophils # (auto) 0.08 K/uL (0-0.50); Eosinophils % (auto) 1.6 %; Hematocrit (blood only) 32.8 % (37.0-47.0); Hemoglobin 10.5 g/dl (12.0-16.0); Immature Granulocytes # (auto) 0.02 K/uL (0.01-0.20); Immature Granulocytes % (auto) 0.4 %; Lymphocytes # (auto) 1.18 K/uL (1.2-3.4); Lymphocytes % (auto) 23.8 %; Mean Corpuscular Hemoglobin 27.7 pg (25.0-34.0); Mean Corpuscular Volume 86.5 fL (80.0-100.0); Mean Platelet Volume 10.6 fL (9.4-12.4); Monocytes # (auto) 0.33 K/uL (0.11-0.59); Monocytes % (auto) 6.7 %; Neutrophils # (auto) 3.32 K/uL (1.40-6.50); Neutrophils % (auto) 66.9 %; Platelet Count 235 K/uL (130-400); RDW Coefficient of Variation 13.8 % (11.5-14.5); RDW Standard Deviation 42.8 fL (36.4-46.3); Red Blood Count 3.79 M/uL (4.20-5.40); White Blood Count 4.96 K/ul (4.8-10.8)
[2023-03-14 06:57] LABS: Albumin Level 3.6 gm/dl (3.4-5.0); BUN Creatinine Ratio 7.2 (10-20); Calcium 8.6 mg/dl (8.6-10.3); Est GFR (African American) 38.7 ml/min; Est GFR (Non-African American) 33.4 ml/min; Magnesium 2.1 mg/dl (1.7-2.4); Phosphorus 3.1 mg/dl (2.5-4.9); Potassium 4.6 mmol/L (3.5-5.1)
[2023-03-14] MEDS: lamoTRIgine 100 MG TAB PO SCH (08:03)
[2023-03-14] MEDS: DICYCLOMINE HCL 10 MG CAP PO PRN ×2 (08:03→08:04)
[2023-03-14] MEDS: GABAPENTIN 600 MG TAB PO SCH (08:03)
[2023-03-14] MEDS: GABAPENTIN 100 MG CAP PO SCH (08:03)
[2023-03-14] MEDS: AMOXICILLIN/CLAVULANATE 875 MG TAB PO SCH (08:04)
[2023-03-14] MEDS: HEPARIN SOD 5,000 UNIT/0.5 ML VIAL SQ SCH (08:07)
[2023-03-14] MEDS: INSULIN ASPART PER UNIT CHARGE SC SCH (08:10)
--- NOTE | 2023-03-14 13:43 | Discharge Summary ---
Date of Service March 14, 2023 Admission HPI Per Admitting Provider The patient is a 72-year-old female with a past medical history including SNHL bilaterally asymmetrically, CAD status post PTCA, hypertension, status post CABG hyponatremia, osteopenia, diabetic nephropathy, disequilibrium, vertebrobasilar insufficiency, bipolar 1 disorder, mild manic, depression, diabetes, GERD, RSD and B12 and D deficiencies. She was most recently admitted to [facility] from 03/05- 03/07/2023 for diverticulitis, and completed a course of Cipro and Flagyl orally upon discharge. She has had persistent nausea with decreased oral intake, and has had persistent generalized weakness and nausea without vomiting. She continues to have some mild left lower quadrant discomfort. She did resume all of her usual medications, which included metformin Principal Diagnosis Diverticulitis Electrolyte abnormalities including hypokalemia and hypomagnesemiaresolved Discharge Exam Patient is awake alert in good condition has less abdominal pain requested a home Discharge Data Allergies Allergy/AdvReac Type Severity Reaction Status Date / Time lurasidone Allergy Intermediate TARDIVE Verified 03/03/23 12:33 DYSKINESIA Phenothiazines Allergy Intermediate "EYES ROLL Verified 03/03/23 12:33 UP" lactose Allergy Mild Verified 03/03/23 12:33 aspartame Allergy Verified 03/06/23 09:02 sucralose Allergy Verified 03/06/23 09:02 bupropion AdvReac Unknown SEIZURE IN Verified 03/03/23 12:33 PAST lithium AdvReac Unknown VOMITING Verified 03/03/23 12:33 AND DIARRHEA ARTIFICIAL SWEETNERS Allergy Unknown DIARRHEA Uncoded 03/03/23 12:33 Consultations 03/13/23 04:03 ED Decision to Admit Stat Hospital Course (1) Diverticulitis: Diverticulitis/GERD/diarrhea- Patient was admitted from 03/05-03/07/2023. Discharged on Cipro Flagyl, concerned that oral antibiotics may be causing GI upset we will complete course with Augmentin for 10-day treatment to the last dose on 03/[address] scans of abdomen pelvis performed on 03/03 and 03/05, and patient requested that no additional CTs be performed this admission Patient was able to eat regular diet did have a bowel movement although typically his constipation was educated on the use of at home medications to improve her bowel habits she was discharged with improving distress but with lópez warning that if her abdominal pain increases if she has fevers or chills she is to return to emergency department (2) Hypokalemia: Electrolyte disturbances/acute kidney injury on CKD-3, acute hypokalemia hyponatremia and hypomagnesemia all have resolved with exception of sodium still mildly low at 134 (3) Diabetes: Diabetes mellitus- Resume metformin 03/14/2023 (4) Depression: Bipolar disorder type I, manic, mild/depression- Continue usual medications, gabapentin, lamotrigine, trazodone (5) HTN (hypertension): Typically takes valsartan 80 mg a day Plan Patient feels she is returned to her baseline request be discharged Total Time Total Time Spent Total Time Spent (In Minutes): It required greater than 30 minutes to prepare this patient for discharge Discharge Plan Discharge Items Patient Disposition: Home - Self-Care Reason For Visit: HYPOMAGNESEMIA, MK, WEAKNESS Discharge Diagnosis: Diverticulitis low magnesium low potassium Activity: Resume your previous activity Non-emergency contact: Primary Care Provider Call non-emergency contact if: your symptoms worsen Follow-up/Referrals: Ej Schroeder MD [Primary Care Provider] - 03/24/23 3:00 pm (Follow up scheduled on 03/24/23 @ 3 pm with Phi Dixon) Diet: Carb Consistent or DM2 Addtl Attending Provider Instructions: please watch your carbohydrate intake, have a healthy diet and hydration, continue exercise Return immediately if you have persistent abdominal pain especially in the left lower abdomen assure a good bowel movement at least every 2 days by moving and hydration, if needed add prunes/prune juice, Senna oral supplement or miralax/clearlax to your daily routine. You can increase or decrease the amount depending on results Please see your primary care this week to re examine your abdomen Pending Studies at Discharge: No Stand-Alone Forms: My [employer], Smoking Cessation Medications and DC Order Prescriptions: New amoxicillin-pot clavulanate 875-125 mg Tablet 1 tab PO BIDM Qty: 3 0RF Continued valsartan 80 mg tablet 80 mg PO PM Qty: 90 3RF gabapentin 100 mg capsule 100 mg PO BID Qty: 180 3RF Rx Instructions: Take 100mg BID in addition to her 600mg BID gabapentin 600 mg tablet 600 mg PO BID Qty: 180 3RF ondansetron HCl 4 mg tablet 4 mg PO DAILY PRN (Reason: nausea and vomiting) Qty: 30 1RF metformin 500 mg tablet extended release 24 hr 1,000 mg PO BID Qty: 360 3RF atorvastatin 40 mg tablet 40 mg PO HS Qty: 90 3RF lamotrigine 100 mg tablet 200 mg PO QAM cyanocobalamin (vitamin B-12) 1,000 mcg/mL solution 1,000 mcg IM MONTHLY levalbuterol tartrate [Xopenex HFA] 45 mcg/actuation HFA aerosol inhaler 2 inh INH Q6H PRN (Reason: Shortness Of Breath) Qty: 15 3RF (DME) lancets Misc See Rx Instructions .ROUTE .MEDSUPPLY Qty: 100 3RF Rx Instructions: TEST ONCE DAILY (DME) OneTouch Verio test strips Strip See Rx Instructions .ROUTE .MEDSUPPLY Qty: 100 3RF Rx Instructions: TEST THREE TIMES DAILY E11.9 acetaminophen [Tylenol Extra Strength] 500 mg tablet 500 mg PO Q6H PRN (Reason: fever) Qty: 20 0RF Rx Instructions: 500mg-1000mg trazodone 100 mg tablet 100 mg PO DAILY tramadol 50 mg tablet 50 mg PO DAILY PRN (Reason: pain) Qty: 10 0RF aspirin [Celestino Low Dose Aspirin] 81 mg Tablet,Delayed Release (Dr/Ec) 81 mg PO QAM dicyclomine 10 mg capsule 10 mg PO TID PRN (Reason: Abdominal Discomfort) Rx Instructions: TAKE 1 CAPSULE BY MOUTH THREE TIMES A DAY NEEDED FOR ABDOMINAL DISCOMFORT Discharge Orders: Discharge Order (Routine); Ordered 03/14/23 Ordered By: Ermias Barros Admission Data Admit Date/Time: 03/13/23 04:57 Attending Provider: Ermias Barros Admit Provider: Angel Watters Primary Care Provider: Ej Schroeder Other Providers: Angel Watters Other Interventions: Discharge Summary Assessment (RN) Last Done: 03/14/23 11:02 Coding Level of Care Code 31755 INP/OBS DISCH >30 MIN Diagnoses Diverticulitis K57.92 Hypokalemia E87.6 Diabetes E11.9 Depression F32.9 HTN (hypertension) I10
== END 2023-03-14 12:10 | disposition home or self-care (01) | DRG 392 ==
LOC: ED 02:38 → SUATTDRO 04:57 → 2E 04:57